=== PATIENT | male | born 2000 | race African-American/Black ===

== ENCOUNTER 2024-04-07 21:20 | Inpatient (IN) | payer SELFPAY ==
--- OUTSIDE RECORDS SUMMARY | 2024-04-07 21:27 | XMS_ITS | Encounter Summary ---
Author Organization [facility] Address [address] [place] [address] Phone Care Team Providers Care Surgical Pathologist Name Role Phone Gilda Shultz MD Primary Care Provi sharon Stanley Simmons Unavailable [phone] Gilda Shultz MD Unavailable [phone] Encounter Details Date Type Department Care Team (Latest Contact Info) Description 07/09/2023 Abstract Cerner Conversion Provider, MD Ronny [address] [place] [id number] Social History Tobacco Use Types Packs/Day Years Used Date Smoking Tobacco: Never Assessed Sex and Gender Information Value Date Recorded Sex Assigned at Male 06/17/2023 3:31 AM EDT Legal Sex Male 3:31 AM EDT Gender Identity Not on file Sexual Orientation Not on file documented as of this encounter Plan of Treatment Not on file documented as of this encounter Visit Diagnoses Not on filedocumented in this encounter Care Teams Surgical Pathologist Relationship Specialty Start Date End Date Gilda Shultz MD [address] [place] [address] PCP - General 07/03/23 Stanley Simmons [address] [place] [address] PCP - Insurance PCP 09/03/20 Gilda Shultz MD [address] [place] [address] PCP - Clinical PCP 10/08/20 documented as of this encounter
--- OUTSIDE RECORDS SUMMARY | 2024-04-07 21:27 | XMS_ITS | Clinical Summary ---
Author Organization [facility] Address [address] [place] [address] Care Team Providers Care Brick Wheeler Name Role Phone Pcp, No Primary Care Provider Unavailabl e Social History Tobacco Use Types Packs/Day Years Used Date Smoking Tobacco: Never Assessed Sex and Gender Information Value Date Recorded Sex Assigned at Not on file Legal Sex Male 10:02 AM EST Gender Identity Not on file Sexual Orientation Not on file Plan of Treatment Health Maintenance Due Date Last Done Comments Annual Physical 2003 Hepatitis B Screening 2018 DTaP,Tdap,and Td Vaccines (1 - Tdap) 2019 COVID-19 Vaccine (2023-2 5 season) 2023 Influenza Vaccine (#1) 2023 4, 12/10/2012 HIB Vaccines Aged Out No longer eligi ble based on patient's age to complete this topic Hepatitis A Vaccine Aged Out No longe r eligible based on patient's age to complete this topic Pneumococcal Vaccines 0-64 yrs (includes High Risk) Aged Out No longer eligi ble based on patient's age to complete this topic Care Teams Brick Wheeler Relationship Specialty Start Date End Date [place] [id number] PCP - General 02/25/19
--- OUTSIDE RECORDS SUMMARY | 2024-04-07 21:27 | XMS_ITS | Clinical Summary ---
[facility] Address [address] [place] [address] Phone Care Team Providers Care Cloth Finishing Range Back Tender Name Role Phone Required, No Pcp/Pcp Not Primary Care Provider U navailable Allergies No known active allergies Medications OLANZapine (ZYPREXA) 5 MG tablet Take 1 tablet (5 mg) by mouth nightly 04/07/2024 Active Active Problems Problem Noted Date Diagnosed Date Schizophrenia 04/06/2024 Brief psychotic disorder 12/30/2019 Encounters Date Type Department Care Team Description 04/06/2024 1:29 PM EST - 04/07/2024 6:50 PM EST Emergency [facility] - Emergency Department [address] [place] [address] Sal Hartley DO Chang, Howard Hong-Juei, MD Corrigan, Daniel, MD Cingari, MD Randy Hogan Mark A., MD Mood disturbance (Primary Dx); Encounter for medical screening examination Discharge Disposition: Psychiatric Facility 04/06/2024 Travel from Last 3 Months Social History Tobacco Use Types Packs/Day Years Used Date Smoking Tobacco: Never Smokeless Tobacco: Never Tobacco Cessation:Counseling Given: Not Answered Sex and Gender Information Value Date Recorded Sex Assigned at Not on file Legal Sex Male 12:00 PM EDT Gender Identity Not on file Sexual Orientation Not on file Last Filed Vital Signs Vital Sign Reading Time Taken Comments Blood Pressure 136/84 04/07/2024 6:41 PM EST Pulse 89 04/07/2024 6:41 PM EST Temperature 36.8 ??C (98.3 ??F) 04/07/2024 6:41 PM ES T Respiratory Rate 16 04/07/2024 6:41 PM EST Oxygen Saturation 96% 04/07/2024 6:41 PM EST Inhaled Oxygen Concentration - - Weight 97.5 kg (215 lb) 04/06/2024 2:01 PM EST Height 180.3 cm (5' 11 ) 04/06/2024 2:01 PM EST Body Mass Index 29.99 04/06/2024 2:01 PM EST Plan of Treatment Health Maintenance Due Date Last Done Comments [facility] Topic HIV Screening 2000 [facility] Topic Hepatitis C Screening 2000 [facility] Topic Depression Screening 2012 [facility] Topic HPV Vaccines (1 - Male 3-dose series) 2015 [facility] Topic Tdap Vaccine (1 - Tdap) 2019 [facility] Topic Lipid Profile 5 years 2022 [facility] Topic Influenza (Flu) Seasonal (#1) 2023 11/24/2019, 11/22/2017, 12/28/2013, Additional history exists [facility] Topic Meningococcal Group B Conjugate Vaccine Aged Out 10/01/2017 No longer elig ible based on patient's age to complete this topic Procedures Procedure Name Priority Date/Time Associated Diagnosis Comments ECG 12-LEAD STAT 04/07/2024 8:53 AM EST URINALYSIS WITH REFLEX STAT 3:39 PM EST URINALYSIS WITH REFLEX STAT 3:39 PM EST URINE DRUGS OF ABUSE SCREEN STAT 04/06/2024 3:39 PM EST EXTRA URINE CULTURE TUBE STAT 04/06/2024 3:39 PM EST ETHANOL STAT 04/06/2024 2:59 PM EST SALICYLATE LEVEL STAT 04/06/2024 2:59 PM EST ACETAMINOPHEN LEVEL STAT 04/06/2024 2 :59 PM EST COMPREHENSIVE METABOLIC PANEL STAT 04/06/2024 2:59 PM EST CBC WITH AUTO DIFFERENTIAL STAT 04/06/2024 2:59 PM EST COVID-19 ([facility]) STAT 04/06/2024 2:59 PM EST from Last 3 Months Results * Urinalysis with reflex (04/06/2024 3:39 PM EST) Color, Urine Yellow Colorless, Yellow 04/06/2024 3:59 PM [facility] Clarity, Urine Clear Clear 04/06/2024 3:59 PM [facility] Specific [place], Urine 1.004 1.002 - 1.030 04/06/2024 3:59 PM [facility] pH, Urine 7.0 5.0 - 8.0 04/06/2024 3:59 PM [facility] Leukocytes, Urine Negative Negative 04/06/2024 3:59 PM [facility] Nitrite, Urine Negative Negative 04/06/2024 3:59 PM [facility] Protein, Urine Negative Negative 04/06/2024 3:59 PM [facility] Glucose, Urine Negative Negative 04/06/2024 3:59 PM [facility] Ketones, Urine Negative Negative 04/06/2024 3:59 PM [facility] Bilirubin, Urine Negative Negative 04/06/2024 3:59 PM [facility] Blood, Urine Negative Negative 04/06/2024 3:59 PM [facility] Urine Urine specimen obtained by clean catch procedure / Unknown Non-blood Collection / Unknown 04/06/2024 3:39 PM EST 04/06/2024 3:50 PM EST [facility] - 04/06/2024 3:59 PM EST Per protocol, no culture performed. For protocol inquiries or add-on testing, please call Infectious Disease at [phone] or [phone]. us Sal Hartley DO LAB URINE ORDERABLES Fi nal Result [facility] [address] [place] [address], * Extra Urine Culture Tube (04/06/2024 3:39 PM EST) Extra Tube 04/06/2024 5:01 PM [facility] Comment:An Extra tube was co llected from this patient. Please follow add on workflow or contact the Laboratory if you wish to place orders on this specimen. Urine Urine specimen obtained by clean catch procedure / Unknown Non-blood Collection / Unknown 04/06/2024 3:39 PM EST 04/06/2024 3:49 PM EST Sal Hartley DO LAB MICROBIOLOGY - GENE RAL ORDERABLES Final Result Performing Organization Address [facility]/ZIP Co de Phone Number [facility] [address] [place] [address], * Urine drugs of abuse screen (04/06/2024 3:39 PM EST) Amphetamines, Urine Screen None Detected None Detected 04/06/2024 4:21 PM [facility] Barbiturates, Urine Screen None Detected None Detected 04/06/2024 4:21 PM [facility] Benzodiazepines, Urine Screen None Detected None Detected 04/06/2024 4:21 PM [facility] Cocaine, Urine Screen None Detected None Detected 04/06/2024 4:21 PM [facility] Opiates, Urine Screen None Detected None Detected 04/06/2024 4:21 PM [facility] Cannabinoids (THC), Urine Screen None Detected None Detected 04/06/2024 4:21 PM [facility] Tricyclic Antidepressants, Urine Screen None Detected None Detected 04/06/2024 4:21 PM [facility] Fentanyl, Urine Screen None Detected None Detected 04/06/2024 4:21 PM [facility] Methadone, Urine Screen None Detected None Detected 04/06/2024 4:21 PM [facility] Oxycodone, Urine Screen None Detected None Detected 04/06/2024 4:21 PM [facility] Buprenorphine, Urine Screen None Detected None Detected 04/06/2024 4:21 PM [facility] Phencyclidine, Urine Screen None Detected None Detected 04/06/2024 4:21 PM [facility] Urine Urine specimen obtained by clean catch procedure / Unknown Non-blood Collection / Unknown 04/06/2024 3:39 PM EST 04/06/2024 3:50 PM [facility] - 04/06/2024 4:21 PM [facility] This is a screening test for urine drugs of ABUSE only, performed using Yann Yrn analyzer. It is not designed or intended to monitor treatment or assess patient compliance. ??Those purposes are best served by a specific assay for the specific drug being administered. ?? Like any screening test, this drug screen has inherent limitations. ?? A result of NONE DETECTED indicates the absence of the major metabolites of the tested drugs or their presence at a level below the cut-off concentration (see below). ??False negative results may be due to the pharmacokinetics of the drug and/or the timing of the sample relative to the use of the drug in question. ?? A POSITIVE result is a presumptive qualitative positive which indicates that the major metabolites of the tested drugs are likely present at or above their cut- off concentration (see below). ??False positive results may be caused by cross- reacting substances. ??Unconfirmed positive results of this screening test must not be used for non-medical purposes. ?? Cutoffs for Drug Classes: Amphetamines ? 1000 ng/mL Barbiturates ? 200 ng/mL Benzodiazepines ??100 ng/mL Cocaine ?300 ng/mL Opiates ?300 ng/mL TCA ?300 ng/mL THC ?50 ng/mL Fentanyl ?5 ng/mL Methadone ?300 ng/ml Oxycodone ?100 ng/ml Buprenorphine ?5 ng/ml Phencyclidine ? 25 ng/ml Sal Hartley DO LAB URINE ORDERABLES Fi nal Result [facility] [address] [place] [address], [place] [phone] * COVID-19 ([facility]) (04/06/2024 2:59 PM EST) Pathologist [facility] COVDC- ([facility]) PCR Negative Negative LTT PANTHER ANALYZER-DP H 04/06/2024 6:11 PM [facility] Swab (Nasopharynx) Non-blood Collection / Unknown 04/06/2024 2:59 PM EST 04/06/2024 3:06 PM EST Sal Hartley DO LAB MICROBIOLOGY - GENE RAL ORDERABLES Final Result [facility] [address] [place] [address], [place] [phone] * (ABNORMAL) CBC with auto differential (04/06/2024 2:59 PM EST) [facility] WBC 5.6 4.5 - 10.8 10*3 ??l 04/06/2024 3:18 PM [facility] RBC 5.37 4.70 - 6.10 10*6 ??l 04/06/2024 3:18 PM [facility] Hemoglobin 17.2 14.0 - 18.0 g/dL 04/06/2024 3:18 PM [facility] Hematocrit 50.5 42.0 - 52.0 % 04/06/2024 3:18 PM [facility] MCV 94 80 - 95 fL 04/06/2024 3:18 PM [facility] MCH 32.0 25.4 - 39.0 pg 04/06/2024 3:18 PM [facility] MCHC 34.1 31.0 - 37.0 g/dL 04/06/2024 3:18 PM [facility] RDW 11.6 11.5 - 14.5 % 04/06/2024 3:18 PM [facility] Platelets 313 150 - 450 10*3 ??l 04/06/2024 3:18 PM [facility] MPV 9.0 7.0 - 11.0 fL 04/06/2024 3:18 PM [facility] Neutrophils % 62.3 40.0 - 80.0 % 04/06/2024 3:18 PM [facility] Lymphocytes % 29.1 20.0 - 40.0 % 04/06/2024 3:18 PM [facility] Monocytes % 6.6 2.0 - 10.0 % 04/06/2024 3:18 PM [facility] Eosinophils % 0.9(L) 1.0 - 6.0 % 04/06/2024 3:18 PM [facility] Basophils % 0.7 0.0 - 1.0 % 04/06/2024 3:18 PM [facility] Immature Granulocyte % 0.4 0.0 - 0.9 % 04/06/2024 3:18 PM [facility] Neutrophils Absolute 3.52 2.00 - 7.00 K/mm3 04/06/2024 3:18 PM [facility] Absolute Immature Granulocyte 0.02 0.00 - 0.09 K/mm3 04/06/2024 3:18 PM [facility] Lymphocytes Absolute 1.64 1.00 - 3.00 K/mm3 04/06/2024 3:18 PM [facility] Monocytes Absolute 0.37 0.20 - 1.00 K/mm3 04/06/2024 3:18 PM [facility] Eosinophils Absolute 0.05 0.00 - 0.50 K/mm3 04/06/2024 3:18 PM [facility] Basophils Absolute 0.04 0.00 - 0.10 K/mm3 04/06/2024 3:18 PM [facility] Blood Venous blood / Unknown Venipuncture / Unknown 04/06/2024 2:59 PM EST 04/06/2024 3:09 PM EST us Sal Hartley DO LAB BLOOD ORDERABLES Fi nal Result [facility] [address] [place] [address], * Ethanol (04/06/2024 2:59 PM EST) Ethanol <=10 0 - 10 mg/dL 04/06/2024 4:01 PM [facility] Comment:NONE DETECTED: Resul t <10 should be interpreted as NONE DETECTED. Blood Venous blood / Unknown Venipuncture / Unknown 04/06/2024 2:59 PM EST 04/06/2024 3:29 PM EST Sal Hartley DO LAB BLOOD ORDERABLES Fi nal Result Performing Organization Address City/[facility]/ZIP Co de Phone Number [facility] [address] [place] [address], * Acetaminophen level (04/06/2024 2:59 PM EST) Acetaminophen Level <5.1 <15.0 ug/mL 04/06/2024 4:01 PM [facility] Blood Venous blood / Unknown Venipuncture / Unknown 04/06/2024 2:59 PM EST 04/06/2024 3:29 PM EST Sal Hartley DO LAB BLOOD ORDERABLES Fi nal Result Performing Organization Address [facility]/ZIP Co de Phone Number [facility] [address] [place] [address], * Salicylate level (04/06/2024 2:59 PM EST) Salicylate Level <=3.0 3.0 - 30.0 mg/dL 04/06/2024 4:01 PM [facility] Blood Venous blood / Unknown Venipuncture / Unknown 04/06/2024 2:59 PM EST 04/06/2024 3:29 PM EST Sal Hartley DO LAB BLOOD ORDERABLES Fi nal Result [facility] [address] [facility] [place] [address], [place] [phone] * (ABNORMAL) Comprehensive metabolic panel (04/06/2024 2:59 PM [facility]) Glucose 97 70 - 100 mg/dL 04/06/2024 3:36 PM [facility] BUN 8 6 - 19 mg/dL 04/06/2024 3:36 PM [facility] Creatinine 1.0 0.4 - 1.2 mg/dL 04/06/2024 3:36 PM [facility] eGFR >60.00 >60.00 mL/min/1.7 3m*2 04/06/2024 3:36 PM [facility] Sodium 139 135 - 145 mmol/L 04/06/2024 3:36 PM [facility] Potassium 4.0 3.4 - 5.1 mmol/L 04/06/2024 3:36 PM [facility] Chloride 99 98 - 109 mmol/L 04/06/2024 3:36 PM [facility] CO2 26 24 - 32 mmol/L 04/06/2024 3:36 PM [facility] Anion Gap 14(H) 6 - 12 mmol/L 04/06/2024 3:36 PM [facility] Calcium 10.0 8.5 - 10.5 mg/dL 04/06/2024 3:36 PM [facility] Total Bilirubin 0.4 0.2 - 1.2 mg/dL 04/06/2024 3:36 PM [facility] Alkaline Phosphatase 84 40 - 129 U/L 04/06/2024 3:36 PM [facility] ALT (SGPT) 46(H) 0 - 40 U/L 04/06/2024 3:36 PM [facility] AST 22 0 - 37 U/L 04/06/2024 3:36 PM [facility] Total Protein 9.0(H) 6.0 - 8.5 g/dL 04/06/2024 3:36 PM [facility] Albumin 4.8 3.3 - 5.2 g/dL 04/06/2024 3:36 PM [facility] Estimated Creatinine Clearance 135.6 mL/min 04/06/2024 3:36 PM EST [facility] Blood Venous blood / Unknown Venipuncture / Unknown 04/06/2024 2:59 PM EST 04/06/2024 3:04 PM EST Sal Hartley DO LAB BLOOD ORDERABLES Fi nal Result [facility] [address] [facility] [place] [address], from Last 3 Months Advance Directives For more information, please contact: [phone] * Full Code (Latest Code Status on File) Date Activated Date Inactivated Comments 04/06/2024 4:08 PM Question Answer Comments Cardiopulmonary Resuscitatio n: for a patient in cardiac or respiratory arrest (Full Code = Attempt Resuscitation, DNR = Do not attempt resuscitation): Full Code Ventilation: for a patient in respiratory distre ss: Intubate and Ventilate Care Teams Cloth Finishing Range Back Tender Relationship Specialty Start Date End Date Required, No Pcp/Pcp Not [address] [place] [address] PCP - General Configuration Release Manager 04/06/24
--- OUTSIDE RECORDS SUMMARY | 2024-04-07 21:27 | XMS_ITS | Clinical Summary ---
Author Organization [facility] Address [address] [place] [address] Phone Care Team Providers Care Renewable Energy Trader Name Role Phone Gilda Shultz MD Primary Care Provi sharon Stanley Simmons Unavailable [phone] Gilda Shultz MD Unavailable [phone] Allergies No known active allergies Medications * This document contains information received from the source organization and may not represent a complete record from that organization. No known medications Active Problems Problem Noted Date Diagnosed Date Psychosis 08/01/2021 Anxiety 10/09/2020 Depression 10/09/2020 Encounters * This document contains information received from the source organization and may not represent a complete record from that organization. Date Type Department Care Team Description 04/06/2024 Telephone [facility] [address] [place] [address] Torrie Soliman ED F/U Notification 02/16/2024 Travel from Last 3 Months Immunizations Name Administration Dates Next Due Hep A, Unspecified 10/12/2007,09/23/2006 Hep B, Unspecified 01/25/2007,09/23/2006, 005 IPV 10/01/2017, 8,03/25/2004,07/10/2001, 2000 Influenza, Unspecified 11/24/2019,11/22/2017,06/2012 MMR 11/12/2006,09/23/2006 Meningococcal ACWY, unspecified 10/01/2017 Pfizer Purple Cap SARS-CoV-2 07/26/2020,07/06/19 21 Td (adult), unspecified 06/19/2011 Varicella 12/25/2006,09/23/2006 Social History Tobacco Use Types Packs/Day Years Used Date Smoking Tobacco: Never Passive Smoke Exposure: Never Smokeless Tobacco: Never Tobacco Cessation:Counseling Given: Not Answered Sex and Gender Information Value Date Recorded Sex Assigned at Male 06/17/2023 3:31 AM EDT Legal Sex Male 3:31 AM EDT Gender Identity Not on file Sexual Orientation Not on file Last Filed Vital Signs Vital Sign Reading Time Taken Comments Blood Pressure 128/88 02/16/2024 4:08 PM EST Pulse 91 02/16/2024 4:08 PM EST Temperature - - Respiratory Rate 18 05/12/2023 2:46 PM EST Oxygen Saturation 98% 02/16/2024 4:08 PM EST Inhaled Oxygen Concentration - - Weight 101 kg (221 lb 12.5 oz) 02/16/2024 4:08 P M EST Height 178.2 cm (5' 10.16 ) 02/16/2024 4:[address] Body Mass Index 31.68 02/16/2024 4:08 PM EST Plan of Treatment Health Maintenance Due Date Last Done Comments DTaP/Tdap/Td Vaccines (2 - Tdap) 07/17/2011 06/19/2011 HPV Vaccines (1 - Male 3-dose series) 2015 Hepatitis C Screening 2018 COVID-19 Vaccine (3 - season) 2023 07/26/2020, 07/05/2020 Influenza Vaccine (#1) 2023 , 11/22/2017, 12/28/2013, Additional history exists MMR Vaccines Completed 11/12/2006, 09/23/2006 Varicella Vaccines Completed 12/25/2006, 09/23/2006 Hepatitis B Vaccines Completed 01/25/2007, 09/23/2006, 03/25/2004 Hepatitis A Vaccines Completed 10/12/2007, 09/24/19 07 IPV Vaccines Completed 10/01/2017, 09/07, 03/25/2004, Additional history exists Meningococcal Vaccine Completed 10/01/2017, 018 HIV Screening Completed 07/10/2023 HIB Vaccines Aged Out No longer eligi ble based on patient's age to complete this topic Pneumococcal Vaccine: Pediatrics (0 to 5 Years) and At-Risk Patients (6 to 64 Years) Aged Out No longer eligible based on patient's age to complete this topic Rotavirus Vaccines Aged Out No longer eligible based on patient's age to complete this topic Procedures Procedure Name Priority Date/Time Associated Diagnosis Comments RAPID HIV 1 AND 2 SCREEN Routine 07/10/2023 3:14 PM EDT from Last 3 Months or Most Recently Relevant to Health Maintenance Results * HIV-1/2 Combo Ag/Ab w/ Reflex Confirmation (07/10/2023 3:14 PM EDT) HIV-1/2 Combo Antigen/Antibo dy Non-Reacti ve [facility] 07/10/2023 3:14 PM EDT 07/10/2023 7:52 PM EDT us Gilda Terry MD LAB BLOOD ORDERABLE S Final Result [facility] [address] [place] [address], from Last 3 Months or Most Recently Relevant to Health Maintenance Care Teams Renewable Energy Trader Relationship Specialty Start Date End Date Gilda Shultz MD [address] [place] [id number] PCP - General 07/03/23 Stanley Simmons [address] [place] [phone] PCP - Insurance PCP 09/03/20 Gilda Shultz MD [address] [place] [id number] PCP - Clinical PCP 10/08/20
--- OUTSIDE RECORDS SUMMARY | 2024-04-07 21:27 | XMS_ITS | Encounter Summary ---
[facility] Address [address] [facility] [place] [address] Phone Care Team Providers Care Cloth Cutter Name Role Phone Required, No Pcp/Pcp Not Primary Care Provider U navailable Encounter Details Date Type Department Care Team (Latest Contact Info) Description 04/06/2024 Travel Social History Tobacco Use Types Packs/Day Years Used Date Smoking Tobacco: Never Smokeless Tobacco: Never Sex and Gender Information Value Date Recorded Sex Assigned at Not on file Legal Sex Male 12:00 PM EDT Gender Identity Not on file Sexual Orientation Not on file documented as of this encounter Plan of Treatment Not on file documented as of this encounter Visit Diagnoses Not on filedocumented in this encounter Additional Health Concerns Infection Onset Date Last Indicated Resolved Time Covid Possible 04/06/2024 04/06/2024 04/06/2024 6: 11 PM EST documented as of this encounter Care Teams Cloth Cutter Relationship Specialty Start Date End Date Required, No Pcp/Pcp Not [address] [place] [address] PCP - General Manager Billing 04/06/24 documented as of this encounter
--- OUTSIDE RECORDS SUMMARY | 2024-04-07 21:27 | XMS_ITS | Encounter Summary ---
Author Organization [facility] Address [address] [place] [address] Phone Care Team Providers Care Food Porter Name Role Phone Gilda Shultz MD Primary Care Provi sharon Troy Stanley Lianne Unavailable [phone] Gilda Shultz MD Unavailable [phone] Reason for Visit * Reason Onset Date Comments ED F/U Notification 04/06/2024 Encounter Details Date Type Department Care Team (Late st Contact Info) Description 04/06/2024 Telephone [facility] [address] [place] [id number] Torrie Soliman ED F/U Notification Social History Tobacco Use Types Packs/Day Years Used Date Smoking Tobacco: Never Passive Smoke Exposure: Never Smokeless Tobacco: Never Sex and Gender Information Value Date Recorded Sex Assigned at Male 06/17/2023 3:31 AM EDT Legal Sex Male 3:31 AM EDT Gender Identity Not on file Sexual Orientation Not on file documented as of this encounter Miscellaneous Notes * Telephone Encounter - Torrie Soliman - 04/06/2024 3:46 PM EST Perez, Please see info below for Ella's ED visit from today. There hasn't been a disposition documented yet. ED Presentation Date: 04/06 ED Discharge Date: TBD- Currently at ED Location: [facility] Reason for Presentation/Dx: Mood disturbance/ delusions Discharge Disposition:TBD Thank you, Torrie Soliman [facility] [phone] documented in this encounter Plan of Treatment Not on file documented as of this encounter Visit Diagnoses Not on filedocumented in this encounter Care Teams Food Porter Relationship Specialty Start Date End Date Gilda Shultz MD [address] [place] [address] PCP - General 07/03/23 Stanley Simmons [address] [place] [id number] PCP - Insurance PCP 09/03/20 Gilda Shultz MD [address] [place] [address] PCP - Clinical PCP 10/08/20 documented as of this encounter
--- OUTSIDE RECORDS SUMMARY | 2024-04-07 21:27 | XMS_ITS | Encounter Summary ---
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 Name Role Phone Required, No Pcp/Pcp Not Primary Care Provider U navailable Reason for Visit * Reason Comments Delusional Mental Health Problem Encounter Details Date Type Department Care Team (Late st Contact Info) Description 04/06/2024 1:29 PM EST - 04/07/2024 6:50 PM EST Emergency [facility] - Emergency Department [address] [place] [id number] Prince López DO [address] [place] [id number] Obey Valadez MD [address] [place] [phone] Alejandro Jordan MD [address] [place] [address] [address] [place] [address] Shay Ferrell MD [address] [place] [id number] Mac Padilla MD [address] [place] [id number] Mood disturbance (Primary Dx); Encounter for medical screening examination Discharge Disposition: Psychiatric Facility Social History Tobacco Use Types Packs/Day Years Used Date Smoking Tobacco: Never Smokeless Tobacco: Never Tobacco Cessation:Counseling Given: Not Answered Sex and Gender Information Value Date Recorded Sex Assigned at Not on file Legal Sex Male 12:00 PM EDT Gender Identity Not on file Sexual Orientation Not on file documented as of this encounter Last Filed Vital Signs Vital Sign Reading [...] Mass Index 29.99 04/06/2024 2:01 PM EST documented in this encounter Discharge Summaries * Rachel Olivas CNP - 04/07/2024 6:50 PM EST Psychiatric Observation Discharge Summary Patient Name: Clive Chow Date of : 2000 Date of Service: 04/07/2024 Length of Service: 04/06/2024 - 04/07/2024 Final Diagnoses: Patient Active Problem List Diagnosis Brief psychotic disorder (CMS/HCC) Schizophrenia (CMS/HCC) CURRENT DIAGNOSIS: Schizophrenia Patient Active Problem List Diagnosis Brief psychotic disorder (CMS/HCC) Schizophrenia (CMS/HCC) REASON FOR ADMISSION TO PO: paranoia HOSPITAL COURSE Admitted to Psychiatric Observation Service for management of paranoia Start Zyprexa nightly and Zyprexa PRN, add clonidine PRN Limited improvement in symptoms psychosis continued throughout hospitalization continue to recommend inpatient psychiatric placement, Ally has found placement at [facility] where patient will be transferred to for ongoing care. DISCHARGE MEDICATIONS Current Facility-Administered Medications: ibuprofen (ADVIL,MOTRIN) tablet 600 mg, 600 mg, Oral, q6h PRN, Eri Alvarez CNP cloNIDine (CATAPRES) tablet 0.1 mg, 0.1 mg, Oral, TID PRN, Eri Alvarez CNP OLANZapine (ZYPREXA) tablet 5 mg, 5 mg, Oral, TID PRN, Eri Alvarez CNP, 5 mg at 04/06/242057 OLANZapine (ZYPREXA) tablet 5 mg, 5 mg, Oral, Nightly, Eri Alvarez CNP No current outpatient medications on file. MENTAL STATUS UPON DISCHARGE Physical Exam: Musculoskeletal: moves all extremities; no abnormal movements Gait: gait not assessed EPS: none MSE: Appearance: appropriately dressed and malodorous Behavior: cooperative, eye contact limited, and guarded Psychomotor Activity: normal Speech: regular rate, regular rhythm, and regular volume Mood: neutral Affect: blunted Thought Process: linear Thought Content: paranoia Suicidal Ideation: no suicidal ideation Homicidal Ideation: no homicidal ideation Perceptions/Experiences: no hallucinations Insight: poor Judgement: poor Cognitive Exam: Orientation: oriented X3 and alert Memory: intact Attention/Concentration: poor Fund of Knowledge: average Language: fluent Capacity: Cannot leave AMA Health Care Proxy: not invoked ROS Constitutional: No fever, no weight loss Musculoskeletal: NO EPS Positive: paranoia Negative for: headache, sore throat, chest pain, dizziness, blurred vision, fatigue, joint pain, constipation, skin itchiness, dysuria, cough, SOB, vomiting, diarrhea, nausea, abdominal pain. CONDITION AT DISCHARGE Continues with paranoia impaired insight/judgement at risk of harming self or others DISPOSITION Requires Psychiatric Inpatient level of Care POST-DISCHARGE PLAN: Admit to [facility] Accepting Physician - Dr. Mary Jo Olivas CNP documented in this encounter Medications at Time of Discharge OLANZapine (ZYPREXA) 5 MG tablet Take 1 tablet (5 mg) by mouth nightly 04/07/2024 documented as of this encounter Progress Notes * Eri Alvarez CNP - 04/07/2024 7:22 AM EST PSYCH OBSERVATION PROGRESS NOTE Patient Name: Clive Chow Date of : 2000 Date of Service: 04/07/2024 Time of Service: 7:22 AM Time spent: 35 minutes CURRENT DIAGNOSIS Schizophrenia CC: You can talk to [employer] police about the finances. They said they'll cover everything. Brief history: The patient is a 24 y.o. male with a psychiatric history of anxiety, psychosis who presented on 04/06/2024 to the Emergency Department with symptoms of paranoia. Per report, patient was brought to ER on a Section 12 by [employer] for delusions of reference andpersecutory delusions related to being 'gang-stalked' stating that ' my life is at risk'. Patient presents with loose associations, delusions of reference, capgras delusions about seeing imposters offamily members and friends. Patient was reportedly approaching strangers on the street accusing them of stalking/causing harm to him. Upon assessment this afternoon with [facility] clinician, patient is seen sitting on stretcher. He is calm upon approach and cooperative for assessment. He asks us if we spoke with the lieutenant at the police station stating he went there to file a report. Patient reports that there is possible cyberstalking or identity theft going on. Eri is filing a report. I was also involved in a hit and runin [place] that I was going to file report for after that. Patient appears somewhat guarded andparanoid while speaking with myself and ally clinician. He denies presence of suicidal or homicidal ideation. When asked about hallucinations, he reports you do not live with me. He then laughs and states that he does not experience hallucinations. He reports that he does have issues with sleepand experiences vivid dreams. Patient reports having current psychiatric providers through [facility] although denies taking medications at this time. Per collateral information obtained by Ally from responding clinician, patient was adamant thathis report be taken regarding cyber and gang stalking. He reported feeling that his life was being threatened and even went up to a stranger recently accusing them of pretending to be a family member. After extensive chart review, it appears patient was last seen by [facility] psychiatry in 2023's psychosis and concerns for catatonia. At that time, patient reported that he was using mushrooms and experiencing increased paranoia and delusional thinking. It appeared patient was experiencing first break psychosis at that time. 04/07/2024 The patient is seen laying in bed this morning. He reports feeling fine and asks about the plan. Reinforced plan for inpatient psychiatric treatment and re- educated on boarding in ER while awaiting placement. We briefly spoke about insurance barrier, although patient states he does have [facility] then tells me to contact [employer] because they told him they would cover everything. He denies presence of SI, HI, or hallucinations. The patient refused scheduled Zyprexa although appears to have taken PRN Zyprexa last night. Plan to continue to monitor patient psychiatric treatment needs while pending placement. CURRENT MEDICATIONS: Current Facility-Administered Medications: ibuprofen (ADVIL,MOTRIN) tablet 600 mg, 600 mg, Oral, q6h PRN, Eri Alvarez, REYES cloNIDine (CATAPRES) tablet 0.1 mg, 0.1 mg, Oral, TID PRN, Eri Alvarez, ASSOCIATE PROFESSOR OF BIBLICAL STUDIES OLANZapine (ZYPREXA) tablet 5 mg, 5 mg, Oral, TID PRN, Eri Alvarez, REYES, 5 mg at 04/06/242057 OLANZapine (ZYPREXA) tablet 5 mg, 5 mg, Oral, Nightly, Eri Alvarez, ASSOCIATE PROFESSOR [employer] STUDIES No current outpatient medications on file. CURRENT LABS: Recent Results (from the past 24 hours) CBC with auto differential Collection Time: 04/06/24 2:59 PM Result Value Ref Range WBC 5.6 4.5 - 10.8 10*3 ??l RBC 5.37 4.70 - 6.10 10*6 ??l Hemoglobin 17.2 14.0 - 18.0 g/dL Hematocrit 50.5 42.0 - 52.0 % MCV 94 80 - 95 fL MCH 32.0 25.4 - 39.0 pg MCHC 34.1 31.0 - 37.0 g/dL RDW 11.6 11.5 - 14.5 % Platelets 313 150 - 450 10*3 ??l MPV 9.0 7.0 - 11.0 fL Neutrophils % 62.3 40.0 - 80.0 % Lymphocytes % 29.1 20.0 - 40.0 % Monocytes % 6.6 2.0 - 10.0 % Eosinophils % 0.9 (L) 1.0 - 6.0 % Basophils % 0.7 0.0 - 1.0 % Immature Granulocyte % 0.4 0.0 - 0.9 % Neutrophils Absolute 3.52 2.00 - 7.00 K/mm3 Absolute Immature Granulocyte 0.02 0.00 - 0.09 K/mm3 Lymphocytes Absolute 1.64 1.00 - 3.00 K/mm3 Monocytes Absolute 0.37 0.20 - 1.00 K/mm3 Eosinophils Absolute 0.05 0.00 - 0.50 K/mm3 Basophils Absolute 0.04 0.00 - 0.10 K/mm3 Comprehensive metabolic panel Collection Time: 04/06/24 2:59 PM Result Value Ref Range Glucose 97 70 - 100 mg/dL BUN 8 6 - 19 mg/dL Creatinine 1.0 0.4 - 1.2 mg/dL eGFR >60.00 >60.00 mL/min/1.73m*2 Sodium 139 135 - 145 mmol/L Potassium 4.0 3.4 - 5.1 mmol/L Chloride 99 98 - 109 mmol/L CO2 26 24 - 32 mmol/L Anion Gap 14 (H) 6 - 12 mmol/L Calcium 10.0 8.5 - 10.5 mg/dL Total Bilirubin 0.4 0.2 - 1.2 mg/dL Alkaline Phosphatase 84 40 - 129 U/L ALT (SGPT) 46 (H) 0 - 40 U/L AST 22 0 - 37 U/L Total Protein 9.0 (H) 6.0 - 8.5 g/dL Albumin 4.8 3.3 - 5.2 g/dL Estimated Creatinine Clearance 135.6 mL/min Acetaminophen level Collection Time: 04/06/24 2:59 PM Result Value Ref Range Acetaminophen Level <5.1 <15.0 ug/mL Salicylate level Collection Time: 04/06/24 2:59 PM Result Value Ref Range Salicylate Level <=3.0 3.0 - 30.0 mg/dL Ethanol Collection Time: 04/06/24 2:59 PM Result Value Ref Range Ethanol <=10 0 - 10 mg/dL COVID-19 ([facility]) Collection Time: 04/06/24 2:59 PM Specimen: Nasopharynx; Swab Result Value Ref Range COVID-19 ([facility]) Negative Negative Urine drugs of abuse screen Collection Time: 04/06/24 3:39 PM Result Value Ref Range Amphetamines, Urine Screen None Detected None Detected Barbiturates, Urine Screen None Detected None Detected Benzodiazepines, Urine Screen None Detected None Detected Cocaine, Urine Screen None Detected None Detected Opiates, Urine Screen None Detected None Detected Cannabinoids (THC), Urine Screen None Detected None Detected Tricyclic Antidepressants, Urine Screen None Detected None Detected Fentanyl, Urine Screen None Detected None Detected Methadone, Urine Screen None Detected None Detected Oxycodone, Urine Screen None Detected None Detected Buprenorphine, Urine Screen None Detected None Detected Phencyclidine, Urine Screen None Detected None Detected Extra Urine Culture Tube Collection Time: 04/06/24 3:39 PM Specimen: Urine, Clean Catch Result Value Ref Range Extra Tube Urinalysis with reflex Collection Time: 04/06/24 3:39 PM Result Value Ref Range Color, Urine Yellow Colorless, Yellow Clarity, Urine Clear Clear Specific [place], Urine 1.004 1.002 - 1.030 pH, Urine 7.0 5.0 - 8.0 Leukocytes, Urine Negative Negative Nitrite, Urine Negative Negative Protein, Urine Negative Negative Glucose, Urine Negative Negative Ketones, Urine Negative Negative Bilirubin, Urine Negative Negative Blood, Urine Negative Negative CURRENT MENTAL STATUS Physical Exam: Musculoskeletal: moves all extremities; no abnormal movements Gait: gait not assessed EPS: none MSE: Appearance: appropriately dressed and malodorous Behavior: cooperative, eye contact limited, and guarded Psychomotor Activity: normal Speech: regular rate, regular rhythm, and regular volume Mood: neutral Affect: blunted Thought Process: linear Thought Content: paranoia Suicidal Ideation: no suicidal ideation Homicidal Ideation: no homicidal ideation Perceptions/Experiences: no hallucinations Insight: poor Judgement: poor Cognitive Exam: Orientation: oriented X3 and alert Memory: intact Attention/Concentration: poor Fund of Knowledge: average Language: fluent Capacity: Cannot leave AMA Health Care Proxy: not invoked ROS Constitutional: No fever, no weight loss Musculoskeletal: NO EPS Positive: paranoia, delusions, impaired insight Negative for: headache, sore throat, chest pain, dizziness, blurred vision, fatigue, joint pain, constipation, skin itchiness, dysuria, cough, SOB, vomiting, diarrhea, nausea, abdominal pain. TREATMENT RE-ASSESSMENT Reassessment demonstrates ongoing concerns for psychosis. Patient has tolerated medications withoutEPS or oversedation.PRN medications used with positive response. Will continue to monitor ongoing patient treatment needs. PLAN Continue with Psychiatric Observation admission Continue current medications Zyprexa 5 mg QHS PRN's: Zyprexa 5 mg TID PRN for restlessness, irritability, psychosis Clonidine 0.1 mg TID PRN for anxiety Contact family and outpatient providers as needed for treatment and disposition planning Eri Alvarez CNP 04/07/2024 7:22 AM documented in this encounter H&P Notes * Eri Alvarez CNP - 04/06/2024 4:09 PM EST PSYCHIATRIC OBSERVATION ADMISSION H&P REASON FOR CONSULT A psychiatric consult was placed by Dr. López for evaluation of a patient with paranoia. The patient's record was reviewed, patient was interviewed, and clinical staff were consulted to complete this comprehensive psychiatric consultation. Patient Name: Clive Chow Date of : 2000 Date of Service: 04/06/2024 Time of Service: 4:09 PM Length of Service: 70 minutes Source of information: Patient, Staff collateral CHIEF COMPLAINT: Did you talk to the daishautedelontet? I went to file a report. HISTORY OF PRESENT ILLNESS The patient is a 24 y.o. male with a psychiatric history of anxiety, psychosis who presented on 04/06/2024 to the Emergency Department with symptoms of paranoia. Per report, patient was brought to ER on a Section 12 by [employer] for delusions of reference andpersecutory delusions related to being 'gang-stalked' stating that ' my life is at risk'. Patient presents with loose associations, delusions of reference, capgras delusions about seeing imposters offamily members and friends. Patient was reportedly approaching strangers on the street accusing them of stalking/causing harm to him. Upon assessment this afternoon with [facility] clinician, patient is seen sitting on stretcher. He is calm upon approach and cooperative for assessment. He asks us if we spoke with the lieutedelontet at the police station stating he went there to file a report. Patient reports that there is possible cyberstalking or identity theft going on. Eri is filing a report. I was also involved in a hit and runin [place] that I was going to file report for after that. Patient appears somewhat guarded andparanoid while speaking with myself and [facility] clinician. He denies presence of suicidal or homicidal ideation. When asked about hallucinations, he reports you do not live with me. He then laughs and states that he does not experience hallucinations. He reports that he does have issues with sleepand experiences vivid dreams. Patient reports having current psychiatric providers through [facility] although denies taking medications at this time. [facility], patient was adamant thathis report be taken regarding cyber and gang stalking. He reported feeling that his life was being threatened and even went up to a stranger recently accusing them of pretending to be a family member. After extensive chart review, it appears patient was last seen by [facility] psychiatry in 2023's psychosis and concerns for catatonia. At that time, patient reported that he was using mushrooms and experiencing increased paranoia and delusional thinking. It appeared patient was experiencing first break psychosis at that time. Presenting Problem: Psychosis Frequency: Worsening over the last few weeks Modifiable factors: Medication management, utilizing outpatient supports Severity: Severe PAST PSYCHIATRIC HISTORY Outpatient psychiatric providers: Provider: [facility], no meds for over a year Therapist: Dunia Jade at [facility], although hasn't seen her since December Past medication trials: risperdal History of inpatient psychiatric hospitalization: yes History of suicide attempts: denies History of Self-Injurious behavior: denies History of violence towards others: denies, reports only in self defense History of eating disorder: denies History of Trauma: denies FAMILY PSYCHIATRIC HISTORY Family history of psychiatric illness: denies SUBSTANCE HISTORY: Only listing what is appropriate History of: Alcohol use: Denies, reports social use Tobacco/Nicotine use: Denies Marijuana use: Denies Opioid use: Denies Cocaine use: Denies Other: mushrooms in past, last use was in November History of detox/treatment admissions for substance use: denies History of substance related legal issues: denies MEDICAL/SURGICAL HISTORY: Name of outpatient PCP: Required, No Pcp/Pcp Not History of: Head injury: Denies Seizures: Denies LABORATORY SAMPLER infection: Denies Chronic pain: Denies Obstructive Sleep Apnea (BENJA):Denies SOCIAL HISTORY: Living situation: lives with his parents in [place], [place] Social History Socioeconomic History Marital status: Single Spouse name: Not on file Number of children: Not on file Years of education: Not on file Highest education level: Not on file Occupational History Not on file Tobacco Use Smoking status: Never Smokeless tobacco: Never Substance and Sexual Activity Alcohol use: Not on file Drug use: Not on file Sexual activity: Not on file Other Topics Concern Not on file Social History Narrative Lives with family. Here with father. Social Drivers of Health Financial Resource Strain: Not on File (10/25/2018) Received from [facility] Financial Resource Strain Financial Resource Strain: 0 Food Insecurity: Not on File (10/25/2018) Received from [facility] Food Insecurity Food: 0 Transportation Needs: Not on File (10/25/2018) Received from [facility] Transportation Needs Transportation: 0 Physical Activity: Not on File (10/25/2018) Received from [facility] Physical Activity Physical Activity: 0 Stress: Not on File (10/25/2018) Received from [facility] Stress Stress: 0 Social Connections: Not on File (10/25/2018) Received from [facility] Social Connections Social Connections and Isolation: 0 Intimate Partner Violence: Not on file Housing Stability: Not on File (10/25/2018) Received from [facility] Housing Stability Housin ALLERGIES: No Known Allergies RELEVANT LABS: Recent Results (from the past week) CBC with auto differential Collection Time: 04/06/24 2:59 PM Result Value Ref Range WBC 5.6 4.5 - 10.8 10*3 ??l RBC 5.37 4.70 - 6.10 10*6 ??l Hemoglobin 17.2 14.0 - 18.0 g/dL Hematocrit 50.5 42.0 - 52.0 % MCV 94 80 - 95 fL MCH 32.0 25.4 - 39.0 pg MCHC 34.1 31.0 - 37.0 g/dL RDW 11.6 11.5 - 14.5 % Platelets 313 150 - 450 10*3 ??l MPV 9.0 7.0 - 11.0 fL Neutrophils % 62.3 40.0 - 80.0 % Lymphocytes % 29.1 20.0 - 40.0 % Monocytes % 6.6 2.0 - 10.0 % Eosinophils % 0.9 (L) 1.0 - 6.0 % Basophils % 0.7 0.0 - 1.0 % Immature Granulocyte % 0.4 0.0 - 0.9 % Neutrophils Absolute 3.52 2.00 - 7.00 K/mm3 Absolute Immature Granulocyte 0.02 0.00 - 0.09 K/mm3 Lymphocytes Absolute 1.64 1.00 - 3.00 K/mm3 Monocytes Absolute 0.37 0.20 - 1.00 K/mm3 Eosinophils Absolute 0.05 0.00 - 0.50 K/mm3 Basophils Absolute 0.04 0.00 - 0.10 K/mm3 Comprehensive metabolic panel Collection Time: 04/06/24 2:59 PM Result Value Ref Range Glucose 97 70 - 100 mg/dL BUN 8 6 - 19 mg/dL Creatinine 1.0 0.4 - 1.2 mg/dL eGFR >60.00 >60.00 mL/min/1.73m*2 Sodium 139 135 - 145 mmol/L Potassium 4.0 3.4 - 5.1 mmol/L Chloride 99 98 - 109 mmol/L CO2 26 24 - 32 mmol/L Anion Gap 14 (H) 6 - 12 mmol/L Calcium 10.0 8.5 - 10.5 mg/dL Total Bilirubin 0.4 0.2 - 1.2 mg/dL Alkaline Phosphatase 84 40 - 129 U/L ALT (SGPT) 46 (H) 0 - 40 U/L AST 22 0 - 37 U/L Total Protein 9.0 (H) 6.0 - 8.5 g/dL Albumin 4.8 3.3 - 5.2 g/dL Estimated Creatinine Clearance 135.6 mL/min Acetaminophen level Collection Time: 04/06/24 2:59 PM Result Value Ref Range Acetaminophen Level <5.1 <15.0 ug/mL Salicylate level Collection Time: 04/06/24 2:59 PM Result Value Ref Range Salicylate Level <=3.0 3.0 - 30.0 mg/dL Ethanol Collection Time: 04/06/24 2:59 PM Result Value Ref Range Ethanol <=10 0 - 10 mg/dL Urinalysis with reflex Collection Time: 04/06/24 3:39 PM Result Value Ref Range Color, Urine Yellow Colorless, Yellow Clarity, Urine Clear Clear Specific [place], Urine 1.004 1.002 - 1.030 pH, Urine 7.0 5.0 - 8.0 Leukocytes, Urine Negative Negative Nitrite, Urine Negative Negative Protein, Urine Negative Negative Glucose, Urine Negative Negative Ketones, Urine Negative Negative Bilirubin, Urine Negative Negative Blood, Urine Negative Negative MOST RECENT VITAL SIGNS: Vitals: 04/06/24 1607 BP: (!) 152/117 Pulse: (!) 98 Resp: 20 Temp: SpO2: 100% MENTAL STATUS EXAM: Physical Exam: Musculoskeletal: moves all extremities; no abnormal movements Gait: normal EPS: none MSE: Appearance: malodorous Behavior: cooperative and guarded Psychomotor Activity: normal Speech: regular rate, regular rhythm, and regular volume Mood: anxious Affect: labile Thought Process: disorganized and perseverative Thought Content: paranoia and persecutory delusions Suicidal Ideation: no suicidal ideation Homicidal Ideation: no homicidal ideation Perceptions/Experiences: no hallucinations Insight: poor Judgement: poor Cognitive Exam: Orientation: oriented X3 and alert Memory: intact Attention/Concentration: fair Fund of Knowledge: average Language: fluent Capacity: Cannot leave AMA Health Care Proxy: not invoked 1:1 SI Precautions assessment Suicidal thoughts: No -Plan:No -Intent: No Suicidal or Self-harm behaviors: No Risk factors: impaired insight/judgment, psychosis Protective factors: Patient in good behavioral controls and is able to plan for safety, agreeable to reach out to staff if feeling unsafe. For additional documentation please refer to nursing psychosocial documentation for standardized C-SSRS re-assessment. REVIEW OF SYSTEMS Constitutional: No fever, no weight loss Musculoskeletal: NO EPS Positive: paranoia, delusions, impaired insight/judgement Negative for: headache, sore throat, chest pain, dizziness, blurred vision, fatigue, joint pain, constipation, skin itchiness, dysuria, cough, SOB, vomiting, diarrhea, nausea, abdominal pain. CURRENT MEDICATIONS OUTPATIENT: No current outpatient medications ASSESSMENT: The patient presented to the Emergency Department with increased symptoms of paranoia and delusionsin the context of underlying decompensated schizophrenia and medication noncompliance. The patient reportedly presented to the police department stating he wanted to file a report about cyber and gang stalking.he has reportedly been approaching people stating they are stalking him or hurting him. Patient appears quite paranoid and delusional, has little insight into his mental health and minimizing events that occurred prior to coming to ER. Due to concerns for decompensated schizoaffective disorder, ongoing psychosis, and impaired insight and judgment, recommend inpatient psychiatric treatment for stabilization. Patient was informed of plan, although disagrees with disposition. The patient reported not being on medications currently and seemed uninterested in having a discussion about medications. Due to ongoing psychosis, we will start Zyprexa nightly and add Zyprexa as needed for restlessness, irritability, psychosis and clonidine as needed for anxiety. Discussed risks and benefits of these medications with the patient. Continue to evaluate patient's mental status and monitor sleep and appetite closely, observe any potential side effects from psychiatric medications. Will continue to provide counseling to help patient deal with stressors, and provide education and support, while continuing to work with medicine tohelp facilitate patient's clinical progress. HPI and nursing notes were reviewed. Ally are involved in the ongoing treatment planning for this patient. At this time the patient may not leave AMA. Plan to continue to monitor the patient while the patient remains in the hospital. Recommend at this time admission to psychiatric observation for medication adjustment and monitoring, at this time patient presents as at risk of harming others due to psychosis and impaired insight/judgement. Medical review of the labs: UDS needs to be collected, Ethanol - DIAGNOSTIC IMPRESSION: Schizophrenia 20.9 Principal Problem: Schizophrenia (CMS/[facility]) (POA: Yes) PLAN: Admit to Psychiatric Observation Medication plan: Start Zyprexa 5 mg QHS PRN's: Add Zyprexa 5 mg TID PRN for restlessness, irritability, psychosis Add Clonidine 0.1 mg TID PRN for anxiety Monitor: Continue video monitoring to mitigate elopement risk and monitor ongoing patient safety while boarding in the ED. Patient may not leave AMA Discussed risks and benefits of medication plan with patient who was agreeable to aforementioned treatment plan. Update Dr. López to inform team of disposition. Ally involved with treatment planning--inpatient bed search Eri Alvarez CNP 04/06/2024 4:09 PM documented in this encounter Consult Notes * Raquel Vaughn MSW - 04/06/2024 3:12 PM ESTAssociated Order(s): CONSULT TO ASPIRSaida/ LAURA LAURA Adult PIF/Assessment Human Resources Officer (R): ARNALDO Murphy Date of Service (R): 04/06/2024 PERSONAL INFORMATION/DEMOGRAPHICS Patient Demographics Patient Name Clive Chow Legal Sex Male [facility] [id number] Address [place] [facility] [id number] (Home) *Preferred* Extended Emergency Contact Information Primary Emergency Contact: LEONA CHOW Address: [address] [place] [address] [place] [address] [facility] Relation: Mother Preferred language: Qatari Currently Active Insurance Patient has no currently active insurance coverage. ED Arrival Date/Time (R): 04/06/2024 1:29 PM Consult Order Date/Time (R): 04/06/2024 1:44 PM Ready Date (R): 04/06/24 Ready Time (R): 1344 Has this person received services here before? Yes Living Situation: Homeless? (R): No Collateral Contact: [place] TOLBERT and Dunia (therapist) Does the patient have a guardian? [facility] LAURA GUARDIAN: No Guardianship Contact: N/A Email Address: No e-mail address on record Ok to send a message? No Ask the person: Are you in a Dangerous Situation? No If Yes, please explain: (Follow and document per your emergency protocols) N/A Patient Preferred Languages Director Video Needed No Spoken Language Qatari Written Language Qatari Assessment Location of Service (R): ED Who directed client to ED? (R) Police and Section 12 Was the patient sent with a Section 12 (R) Yes Who signed Section 12? (R) Police Presenting Concerns: What has caused this person to seek Services at this time? Pt was BIBA on a S12 with concerns of paranoid delusions. Precipitating Factors: Per report, patient was brought to ER on a Section 12 by [facility] TOLBERT for delusions of reference and persecutory delusions related to being 'gang-stalked' stating that ' my lifeis at risk'. Patient presents with loose associations, delusions of reference, capgras delusions about seeing imposters of family members and friends. Patient was reportedly approaching strangers onthe street accusing them of stalking/causing harm to him. Medical/Physical Past Medical History: Diagnosis Date Anxiety Allergies Reported No Known Allergies Medications Prior to Admission medications Not on File Relevant History No family history on file. Social History Tobacco Use Smoking status: Never Smokeless tobacco: Never Addiction Is there a history of, or current substance use or other addictive behavior? No Was a toxicology screen performed? Yes Results: Negative Was Narcan administered during the last 30 days? No Explain (Please include date and time): N/a Addiction/ Substance Use History Substance Type First Use/Age of Onset Last Use Duration/Frequency Quantities Comments Alcohol Cannabis Cocaine/Crack Heroin Opiates/Narcotics Benzodiazepines Stimulants Hallucinogens Prescription Other: Click or tap here to enter text. Most Recent Acute Admission(s) and Treatment History Has there been a recent acute admission or treatment history? Yes Please include dates of admission, service type, name of agency/provider, goal/outcome: Per chart review and conversation with therapist, pt's last IP admission was in 2020 for similar presentation. Mental Status Exam/Risk Assessment Mental Status Exam/Risk Assessment (within normal limits unless checked, items checked are addressed in clinical formulation/narrative: Affect, Appearance, Impulsivity, Insight, Judgement, Mood, Perception: Delusions, Hallucinations, Sleep, Speech, and Thought Content *Harm to Self and Others include: Means, accessibility (included access to firearms), lethality of means, suicidal/assault history, lethality or attempts/assaults, family history, self- injurious behavior Risk and Protective Factors: RISK - paranoid delusions, impaired insight and judgement, psychosis PROTECTIVE - good behavioral control Clinical Formulation/Narrative/Medical Necessity: Clive Chow is a 24 year-old male who was BIBA on a S12 with concerns of paranoid delusion. Pt is known to LAURA. Pt carries a diagnosis of schizophrenia. Pt has OP providers through [facility], but has not met with them within the last few months. Pt has hx of IP admissions, no hxof suicide attempts. Pt is medically cleared. Pt reported I was trying to file a report for possible cyber stalking and identify theft . Pt reports he was also involved in a hit and run in [place] and was planning on heading there after filing the report in [place]. Pt reports he drove from [place], [place] here today to take care of this. Ptdenies SI/HI/SIB. When asked about hallucinations, pt states you do not live with me , then deniestheir presence. Pt reports adequate sleep and appetite. Pt reports he is currently not taking any medications. Pt observed to be sitting up, in hospital gown, appears stated age. Pt was alert and oriented x4. Pt was engaged and cooperative, however, guarded when answering questions. Pt mood appears to be anxious with congruent affect. Pt speech WNL, eye contact appropriate. Pt thought content contained paranoid delusions. Pt did not appear to be responding to internal stimuli. Impulsivity high, insight and judgement poor. [place], [facility], was contacted for collateral ([phone]). Cory reports pt came into the lobby twice today and was adament that an officer take his report, where he described being cyber and gang stalked for the last four years. Cory reports pt described how this happens when he drives to work, sees license plates starting with EN, who he thinks is a group that is after him, possible just a mass prank. He feels as though these people are threatening his life and needs to defend himself. Cory reports pt has gone up to two strangers accusing them of being after him. Dunia Bassett [facility], pt's therapist, was contacted for collateral. She reports they have been worriedabout pt as he has been symptomatic for quite sometime and stopped going to them after a laps in his insurance. She reports that he has not taken medications for 1+ years and will soon be aging out of their services. She reports that his symptoms can present as hallucinations, paranoia, and respondi ng to internal stimuli. She reports that pt called her one or two weeks ago asking to view his medical records and come in to take pictures of her written notes during session. Leona Chow, pt's mother, was contacted for collateral ([phone]). Voicemail unable to be left, phone continued to ring. At this time, pt presents as a risk to himself and others as evidenced by ongoing psychosis and impaired insight and judgement. Pt is recommended for IPLOC. Latrice Sheppard [facility] and Dr. López were consulted and in agreement with plan. Pt informed of plan. Strengths and Services Preferences: Person's strengths and service preferences: Pt advocated for discharge Is there a Safety Plan? (R): No If yes, please explain: N/A Was a Safety Plan completed or updated during the course of this intervention? (R) No If no, please explain: IPLOC Diagnosis Type Mental Health Only (R): Yes Substance Use Disorder Only (R): No Dual Diagnosis (R): No Comments: N/A Is this person diagnosed with Autism Spectrum Disorder? (R): No Was a Doc to Doc performed? (R): No Was this an Opiod overdose? (R): No Is this a SUDE (Substance Use Disorder Evaluation)? No Was there an LAURA Peer or FP participating in the intervention? (R): No Who initiated FP intervention? (R): N/A Identified Needs and Goals for Treatment Safety and stabilization 2. Connection to OP providers 3. Medication evaluation Additional Recommendations Additional Recommendations: Partial Hospitalization, Self-Help/Peer/Family Support Services, UrgentOutpatient, and Psychopharmacology If other, please explain: Disposition Details Information gathered from:Person Served, Hospital Staff, Reports, Therapist, and Other If other, please explain: [place] [employer] Medical Clearance Requested (R): Yes Medical Clearance Requested by (R): LAURA/CBL If other, please explain: Medical Clearance Provided (R): Yes Medical Clearance Provided Where? (R): ED If other, please explain: Clinical Consult done with: ALFREDA Szymanski Current Safety Assessment: Able to plan for safety in a supportive environment only If other, please explain: Inital Disposition: Inpatient Psychiatric General For Acute Care Time (R): Psychiatric Consult Began Date (R): Time (R): Psychiatric Intervention Began Date (R): Time (R): Intervention Began Time (R) Telehealth: NA Diagnosis: F20.9 Schizophrenia Consult Note documented in this encounter ED Notes * Prince López DO - 04/06/2024 1:40 PM EST EMERGENCY DEPARTMENT ENCOUNTER CHIEF COMPLAINT Mental health disturbance HPI Clive Chow is a 24 y.o. male who presents on 04/06/2024 1:29 PM for evaluation of mental health disturbance. HPI provided by patient and EMS. 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 Patient reportedly lives in [place] but used to live in [place], self presented to the [place] [employer] after their interaction with the patient they are concerned about a loose associations delusions of reference, persecute [place] delusions related to being being stalked reporting that his life was at risk and approaching random people in an accusatory manner. Not reporting any intent to harm self or others. Patient himself reports he thinks that someone might be stalking him, possibly from high school, cannot give any specific names, states that he came up to [place] to notify the proper authorities to see if they could assist to getting to the bottom of this. PAST MEDICAL HISTORY Past Medical History: Diagnosis Date Anxiety SURGICAL HISTORY No past surgical history on file. CURRENT MEDICATIONS No current facility-administered medications on file prior to encounter. No current outpatient medications on file prior to encounter. ALLERGIES No Known Allergies FAMILY HISTORY No family history on file. SOCIAL HISTORY Social History Socioeconomic History Marital status: Single Social History Narrative Lives with family. Here with father. Social Drivers of Health Financial Resource Strain: Not on File (10/25/2018) Received from [facility] Financial Resource Strain Financial Resource Strain: 0 Food Insecurity: Not on File (10/25/2018) Received from [facility] Food Insecurity Food: 0 Transportation Needs: Not on File (10/25/2018) Received from [facility] Transportation Needs Transportation: 0 Physical Activity: Not on File (10/25/2018) Received from [facility] Physical Activity Physical Activity: 0 Stress: Not on File (10/25/2018) Received from [facility] Stress Stress: 0 Social Connections: Not on File (10/25/2018) Received from [facility] Social Connections Social Connections and Isolation: 0 Housing Stability: Not on File (10/25/2018) Received from [facility] Housing Stability [place] REVIEW OF SYSTEMS Comprehensive review of systems unobtainable secondary to patient's current mood and thought alteration PHYSICAL EXAM Vital Signs: Reviewed Constitutional: no painful distress HENT: Normocephalic, Atraumatic, Bilateral external ears normal, Oropharynx moist. Neck: No tenderness, No JVD. Eyes: PERRL, EOMI, Conjunctiva normal Respiratory: No respiratory distress, LCTAB Cardiovascular: Normal heart rate, regular rhythm Abdominal: Soft,no tenderness Musculoskeletal: No edema, No deformities noted. Distal pulses 2+ Skin: Warm, Dry, No rash. Lymphatic: No lymphadenopathy noted. Neurological: Alert & awake, No focal deficits noted, Gait: Steady Psychiatric: Appropriate for situation, age and time, cooperative, does not appear to be respondingto internal stimuli LABS: Recent Results (from the past 24 hours) CBC with auto differential Collection Time: 04/06/24 2:59 PM Result Value Ref Range WBC 5.6 4.5 - 10.8 10*3 ??l RBC 5.37 4.70 - 6.10 10*6 ??l Hemoglobin 17.2 14.0 - 18.0 g/dL Hematocrit 50.5 42.0 - 52.0 % MCV 94 80 - 95 fL MCH 32.0 25.4 - 39.0 pg MCHC 34.1 31.0 - 37.0 g/dL RDW 11.6 11.5 - 14.5 % Platelets 313 150 - 450 10*3 ??l MPV 9.0 7.0 - 11.0 fL Neutrophils % 62.3 40.0 - 80.0 % Lymphocytes % 29.1 20.0 - 40.0 % Monocytes % 6.6 2.0 - 10.0 % Eosinophils % 0.9 (L) 1.0 - 6.0 % Basophils % 0.7 0.0 - 1.0 % Immature Granulocyte % 0.4 0.0 - 0.9 % Neutrophils Absolute 3.52 2.00 - 7.00 K/mm3 Absolute Immature Granulocyte 0.02 0.00 - 0.09 K/mm3 Lymphocytes Absolute 1.64 1.00 - 3.00 K/mm3 Monocytes Absolute 0.37 0.20 - 1.00 K/mm3 Eosinophils Absolute 0.05 0.00 - 0.50 K/mm3 Basophils Absolute 0.04 0.00 - 0.10 K/mm3 Comprehensive metabolic panel Collection Time: 04/06/24 2:59 PM Result Value Ref Range Glucose 97 70 - 100 mg/dL BUN 8 6 - 19 mg/dL Creatinine 1.0 0.4 - 1.2 mg/dL eGFR >60.00 >60.00 mL/min/1.73m*2 Sodium 139 135 - 145 mmol/L Potassium 4.0 3.4 - 5.1 mmol/L Chloride 99 98 - 109 mmol/L CO2 26 24 - 32 mmol/L Anion Gap 14 (H) 6 - 12 mmol/L Calcium 10.0 8.5 - 10.5 mg/dL Total Bilirubin 0.4 0.2 - 1.2 mg/dL Alkaline Phosphatase 84 40 - 129 U/L ALT (SGPT) 46 (H) 0 - 40 U/L AST 22 0 - 37 U/L Total Protein 9.0 (H) 6.0 - 8.5 g/dL Albumin 4.8 3.3 - 5.2 g/dL Estimated Creatinine Clearance 135.6 mL/min Acetaminophen level Collection Time: 04/06/24 2:59 PM Result Value Ref Range Acetaminophen Level <5.1 <15.0 ug/mL Salicylate level Collection Time: 04/06/24 2:59 PM Result Value Ref Range Salicylate Level <=3.0 3.0 - 30.0 mg/dL Ethanol Collection Time: 04/06/24 2:59 PM Result Value Ref Range Ethanol <=10 0 - 10 mg/dL COVID-19 ([facility]) Collection Time: 04/06/24 2:59 PM Specimen: Nasopharynx; Swab Result Value Ref Range COVID-19 ([facility]) Negative Negative Urine drugs of abuse screen Collection Time: 04/06/24 3:39 PM Result Value Ref Range Amphetamines, Urine Screen None Detected None Detected Barbiturates, Urine Screen None Detected None Detected Benzodiazepines, Urine Screen None Detected None Detected Cocaine, Urine Screen None Detected None Detected Opiates, Urine Screen None Detected None Detected Cannabinoids (THC), Urine Screen None Detected None Detected Tricyclic Antidepressants, Urine Screen None Detected None Detected Fentanyl, Urine Screen None Detected None Detected Methadone, Urine Screen None Detected None Detected Oxycodone, Urine Screen None Detected None Detected Buprenorphine, Urine Screen None Detected None Detected Phencyclidine, Urine Screen None Detected None Detected Extra Urine Culture Tube Collection Time: 04/06/24 3:39 PM Specimen: Urine, Clean Catch Result Value Ref Range Extra Tube Urinalysis with reflex Collection Time: 04/06/24 3:39 PM Result Value Ref Range Color, Urine Yellow Colorless, Yellow Clarity, Urine Clear Clear Specific [place], Urine 1.004 1.002 - 1.030 pH, Urine 7.0 5.0 - 8.0 Leukocytes, Urine Negative Negative Nitrite, Urine Negative Negative Protein, Urine Negative Negative Glucose, Urine Negative Negative Ketones, Urine Negative Negative Bilirubin, Urine Negative Negative Blood, Urine Negative Negative ED COURSE & MEDICAL DECISION MAKING lCive Chow is a 24 y.o. male who presents to the ED with paranoia. ED and nursing records reviewed. Additional pertinent available records reviewed: Last seen 12/30/2019 secondary to catatonia and psychosis, mushroom use. On initial presentation exam notable for paranoia but redirectable Differential includes but not limited to psychosis, either organic and/or drug- induced, intoxication versus withdrawal syndrome, occult trauma, occult infection. Initial plan for lab work, urinalysis, crisis team eval and reassess. Discussion of management with physician, qualified health professional, and/or appropriate source: Ally Escalation of care to admission or observation considered: Although not emergently indicated Consideration of treatments or testing, not performed: CT head entertained although did have cross-sectional imaging of brain in 2019 which was reportedly normal Chronic Conditions affecting care include: As above Social Determinants of Health significantly affecting the care and disposition of this patient include: None Based on my history and exam, patient has an emergency psychiatric condition that requires care coordination by crisis team for potential inpatient level of care. Patient is pending mental health evaluation at the time of this dictation and their history, diagnostics and physical exam demonstrate that they are medically stable for psychiatric confinement. Patient seen by [facility] and psychiatry andwe are in agreement he would be best served for inpatient psychiatric stabilization. Signout to my colleague at change of shift pending bed search FINAL IMPRESSION 1. Mood disturbance 2. Encounter for medical screening examination DISPOSITION Bed search CONDITION Stable Electronically signed by: PRINCE LÓPEZ DO, 04/06/2024 1:40 PM This Emergency Department patient encounter note was created using voice- recognition software and in real time during the ED visit. Please excuse any typographical errors that have not been edited out. Note to patient: The cures act makes medical notes like these available to patients inthe interest of transparency. However, be advised this is a medical document. It is intended primarily as iydd-xk-kwsu communication. It is written in medical language and may contain abbreviations or verbiage that are unfamiliar. It may appear blunt or direct. This is because medical documents areintended to carry relevant information, facts as evident, and the clinical opinion of the practitioner only as of the time of writing. Prince López DO 04/06/241999 * Kourtney Segura RN - 04/06/2024 1:36 PM EST Clive Chow is a 24 y.o. male presenting with Delusional and Mental Health Problem BIBA from [place] [employer], on [address] for delusions, pt believes people are stalking him, pt was going up to random people in public and accusing them of stalking him and causing him harm. Pt is also reporting capgras delusions. Per [facility] for police department, pt presented with no insight and grossly impaired judgement, and has been acting on his delusional beliefs. documented in this encounter Miscellaneous Notes * Behavioral Health - Jeronimo Farias MSW - 04/07/2024 3:44 PM EST [facility] @ [facility], Dr. Camargo. * Behavioral Health - Catrina Gregory MSW - 04/07/2024 7:42 AM EST The Client has been faxed out to the following for bed placement: Faxed to [place] [phone] * Behavioral Health - Milady Titus MSW - 04/06/2024 9:34 PM EST [facility] is willing to accept the Client once they start the process of obtaining new insurance coverage. [facility] will touch base with [facility] [employer] tomorr, 04/07 and report back to [facility]. * Behavioral Health Milady Beavers MSW - 04/06/2024 7:59 PM EST Rose Mckeon was reviewing the Client but is unable to proceed with an admission due to lack of insurance coverage. Client has no active insurance plan and [facility]. [facility] will need to contact [facility] [employer] tomorrow, 04/07. * Behavioral Health - Milady Titus MSW - 04/06/2024 7:28 PM EST Client faxed to: [facility] documented in this encounter Plan of Treatment Pending Results Name Type Priority Associated Diagnoses Date /Time ECG ECG STAT 04/07/2024 8:5 3 AM EST documented as of this encounter Procedures Procedure Name Priority Date/Time Associated Diagnosis Comments ECG 12-LEAD STAT 04/07/2024 8:53 AM EST URINALYSIS WITH REFLEX STAT 3:39 PM EST EXTRA URINE CULTURE TUBE STAT 04/06/2024 3:39 PM EST URINE DRUGS OF ABUSE SCREEN STAT 04/06/2024 3:39 PM EST URINALYSIS WITH REFLEX STAT 3:39 PM EST COVID-19 ([facility]) STAT 04/06/2024 2:59 PM EST CBC WITH AUTO DIFFERENTIAL STAT 04/06/2024 2:59 PM EST ETHANOL STAT 04/06/2024 2:59 PM EST ACETAMINOPHEN LEVEL STAT 04/06/2024 2 :59 PM EST SALICYLATE LEVEL STAT 04/06/2024 2:59 PM EST COMPREHENSIVE METABOLIC PANEL STAT 04/06/2024 2:59 PM EST documented in this encounter Results * Urinalysis with reflex (04/06/2024 3:39 PM EST) Color, Urine Yellow Colorless, Yellow 04/06/2024 3:59 PM [facility] Clarity, Urine Clear Clear 04/06/2024 3:59 PM [facility] Specific [place], Urine 1.004 1.002 - 1.030 04/06/2024 3:59 PM [facility] pH, Urine 7.0 5.0 - 8.0 04/06/2024 3:59 PM [facility] Leukocytes, Urine Negative Negative 04/06/2024 3:59 PM [facility] Nitrite, Urine Negative Negative 04/06/2024 3:59 PM [facility] Protein, Urine Negative Negative 04/06/2024 3:59 PM [facility] Glucose, Urine Negative Negative 04/06/2024 3:59 PM [facility] Ketones, Urine Negative Negative 04/06/2024 3:59 PM [facility] Bilirubin, Urine Negative Negative 04/06/2024 3:59 PM [facility] Blood, Urine Negative Negative 04/06/2024 3:59 PM [facility] Urine Urine specimen obtained by clean catch procedure / Unknown Non-blood Collection / Unknown 04/06/2024 3:39 PM EST 04/06/2024 3:50 PM EST [facility] - 04/06/2024 3:59 PM EST Per protocol, no culture performed. For protocol inquiries or add-on testing, please call Infectious Disease at [phone] or [phone]. Prince López DO LAB URINE ORDERABLES Fi nal Result [facility] [address] [place] [address], [place] [phone] * Extra Urine Culture Tube (04/06/2024 3:39 PM EST) Extra Tube 04/06/2024 5:01 PM [facility] Comment:An Extra tube was co llected from this patient. Please follow add on workflow or contact the Laboratory if you wish to place orders on this specimen. Urine Urine specimen obtained by clean catch procedure / Unknown Non-blood Collection / Unknown 04/06/2024 3:39 PM EST 04/06/2024 3:49 PM EST Prince López DO LAB MICROBIOLOGY - GENE RAL ORDERABLES Final Result [facility] [address] [place] [address], * Urine drugs of abuse screen (04/06/2024 3:39 PM EST) Pathologist [facility] Amphetamines, Urine Screen None Detected None Detected 04/06/2024 4:21 PM [facility] Barbiturates, Urine Screen None Detected None Detected 04/06/2024 4:21 PM [facility] Benzodiazepines, Urine Screen None Detected None Detected 04/06/2024 4:21 PM [facility] Cocaine, Urine Screen None Detected None Detected 04/06/2024 4:21 PM [facility] Opiates, Urine Screen None Detected None Detected 04/06/2024 4:21 PM [facility] Cannabinoids (THC), Urine Screen None Detected None Detected 04/06/2024 4:21 PM [facility] Tricyclic Antidepressants, Urine Screen None Detected None Detected 04/06/2024 4:21 PM [facility] Fentanyl, Urine Screen None Detected None Detected 04/06/2024 4:21 PM [facility] Methadone, Urine Screen None Detected None Detected 04/06/2024 4:21 PM [facility] Oxycodone, Urine Screen None Detected None Detected 04/06/2024 4:21 PM [facility] Buprenorphine, Urine Screen None Detected None Detected 04/06/2024 4:21 PM [facility] Phencyclidine, Urine Screen None Detected None Detected 04/06/2024 4:21 PM [facility] Urine Urine specimen obtained by clean catch procedure / Unknown Non-blood Collection / Unknown 04/06/2024 3:39 PM EST 04/06/2024 3:50 PM [facility] - 04/06/2024 4:21 PM EST This is a screening test for urine [...] Buprenorphine ?5 ng/ml Phencyclidine ? 25 ng/ml us Prince López DO LAB URINE ORDERABLES Fi nal Result [facility] [address] [place] [address], * COVID-19 ([facility]) (04/06/2024 2:59 PM EST) [facility] Signature COVID-19 ([facility]) PCR Negative Negative LTT PANTHER ANALYZER-DP H 04/06/2024 6:11 PM EST [facility] Swab (Nasopharynx) Non-blood Collection / Unknown 04/06/2024 2:59 PM EST 04/06/2024 3:06 PM EST Prince López DO LAB MICROBIOLOGY - GENE RAL ORDERABLES Final Result [facility] [address] [place] [address], * Ethanol (04/06/2024 2:59 PM EST) Ethanol <=10 0 - 10 mg/dL 04/06/2024 4:01 PM EST [facility] Comment:NONE DETECTED: Resul t <10 should be interpreted as NONE DETECTED. Blood Venous blood / Unknown Venipuncture / Unknown 04/06/2024 2:59 PM EST 04/06/2024 3:29 PM EST Prince López DO LAB BLOOD ORDERABLES Fi nal Result Performing Organization Address City/[facility]/ZIP Co de Phone Number [facility] [address] [place] [address], * Salicylate level (04/06/2024 2:59 PM EST) Salicylate Level <=3.0 3.0 - 30.0 mg/dL 04/06/2024 4:01 PM EST [facility] Blood Venous blood / Unknown Venipuncture / Unknown 04/06/2024 2:59 PM EST 04/06/2024 3:29 PM EST Prince López DO LAB BLOOD ORDERABLES Fi nal Result [facility] [address] [place] [address], * Acetaminophen level (04/06/2024 2:59 PM EST) Acetaminophen Level <5.1 <15.0 ug/mL 04/06/2024 4:01 PM [facility] Blood Venous blood / Unknown Venipuncture / Unknown 04/06/2024 2:59 PM EST 04/06/2024 3:29 PM EST Prince López DO LAB BLOOD ORDERABLES Fi nal Result [facility] [address] [place] [address], [place] [phone] * (ABNORMAL) Comprehensive metabolic panel (04/06/2024 2:59 PM EST) Glucose 97 70 - 100 mg/dL 04/06/2024 3:36 PM [facility] BUN 8 6 - 19 mg/dL 04/06/2024 3:36 PM [facility] Creatinine 1.0 0.4 - 1.2 mg/dL 04/06/2024 3:36 PM [facility] eGFR >60.00 >60.00 mL/min/1.7 3m*2 04/06/2024 3:36 PM [facility] Sodium 139 135 - 145 mmol/L 04/06/2024 3:36 PM [facility] Potassium 4.0 3.4 - 5.1 mmol/L 04/06/2024 3:36 PM [facility] Chloride 99 98 - 109 mmol/L 04/06/2024 3:36 PM [facility] CO2 26 24 - 32 mmol/L 04/06/2024 3:36 PM [facility] Anion Gap 14(H) 6 - 12 mmol/L 04/06/2024 3:36 PM [facility] Calcium 10.0 8.5 - 10.5 mg/dL 04/06/2024 3:36 PM [facility] Total Bilirubin 0.4 0.2 - 1.2 mg/dL 04/06/2024 3:36 PM [facility] Alkaline Phosphatase 84 40 - 129 U/L 04/06/2024 3:36 PM [facility] ALT (SGPT) 46(H) 0 - 40 U/L 04/06/2024 3:36 PM [facility] AST 22 0 - 37 U/L 04/06/2024 3:36 PM [facility] Total Protein 9.0(H) 6.0 - 8.5 g/dL 04/06/2024 3:36 PM [facility] Albumin 4.8 3.3 - 5.2 g/dL 04/06/2024 3:36 PM [facility] Estimated Creatinine Clearance 135.6 mL/min 04/06/2024 3:36 PM [facility] Blood Venous blood / Unknown Venipuncture / Unknown 04/06/2024 2:59 PM EST 04/06/2024 3:04 PM EST Prince López DO LAB BLOOD ORDERABLES Fi nal Result [facility] [address] [place] [address], [place] [phone] * (ABNORMAL) CBC with auto differential (04/06/2024 2:59 PM EST) WBC 5.6 4.5 - 10.8 10*3 ??l 04/06/2024 3:18 PM [facility] RBC 5.37 4.70 - 6.10 10*6 ??l 04/06/2024 3:18 PM [facility] Hemoglobin 17.2 14.0 - 18.0 g/dL 04/06/2024 3:18 PM [facility] Hematocrit 50.5 42.0 - 52.0 % 04/06/2024 3:18 PM [facility] MCV 94 80 - 95 fL 04/06/2024 3:18 PM [facility] MCH 32.0 25.4 - 39.0 pg 04/06/2024 3:18 PM [facility] MCHC 34.1 31.0 - 37.0 g/dL 04/06/2024 3:18 PM [facility] RDW 11.6 11.5 - 14.5 % 04/06/2024 3:18 PM [facility] Platelets 313 150 - 450 10*3 ??l 04/06/2024 3:18 PM [facility] MPV 9.0 7.0 - 11.0 fL 04/06/2024 3:18 PM [facility] Neutrophils % 62.3 40.0 - 80.0 % 04/06/2024 3:18 PM [facility] Lymphocytes % 29.1 20.0 - 40.0 % 04/06/2024 3:18 PM [facility] Monocytes % 6.6 2.0 - 10.0 % 04/06/2024 3:18 PM [facility] Eosinophils % 0.9(L) 1.0 - 6.0 % 04/06/2024 3:18 PM [facility] Basophils % 0.7 0.0 - 1.0 % 04/06/2024 3:18 PM [facility] Immature Granulocyte % 0.4 0.0 - 0.9 % 04/06/2024 3:18 PM [facility] Neutrophils Absolute 3.52 2.00 - 7.00 K/mm3 04/06/2024 3:18 PM [facility] Absolute Immature Granulocyte 0.02 0.00 - 0.09 K/mm3 04/06/2024 3:18 PM [facility] Lymphocytes Absolute 1.64 1.00 - 3.00 K/mm3 04/06/2024 3:18 PM [facility] Monocytes Absolute 0.37 0.20 - 1.00 K/mm3 04/06/2024 3:18 PM [facility] Eosinophils Absolute 0.05 0.00 - 0.50 K/mm3 04/06/2024 3:18 PM [facility] Basophils Absolute 0.04 0.00 - 0.10 K/mm3 04/06/2024 3:18 PM [facility] Blood Venous blood / Unknown Venipuncture / Unknown 04/06/2024 2:59 PM EST 04/06/2024 3:09 PM EST us Prince López DO LAB BLOOD ORDERABLES Fi nal Result [facility] [address] [place] [address], documented in this encounter Visit Diagnoses Diagnosis Schizophrenia ([facility]/HCC)- Primary Unspecified schizophrenia, unspecified condition Mood disturbance Encounter for medical screening examination documented in this encounter Admitting Diagnoses Diagnosis Schizophrenia (CMS/HCC) Unspecified schizophrenia, unspecified condition documented in this encounter Administered Medications Active Administered Medications - up to 3 most recent administrations Medication Order MAR Action Action Date Dose Rate Site OLANZapine (ZYPREXA) tablet 5 mg 5 mg, Oral, 3 times daily PRN, restlessness / irritability, Psychosis (hallucinations, delusions, or disorganized thinking/speech), Starting on Thu04/06/24 at 1608 Given 04/06/2024 8:58 PM EST 5 mg documented in this encounter Active and Recently Administered Medications Times are shown in EST. Scheduled Medication Order 04/05/2024 04/06/2024 04/07/2024 OLANZapine (ZYPREXA) tablet 5 mg 5 mg, Oral, Nightly, First dose on Thu04/06/24 at 2100 2100 (Not Given - Provider: Keila Riggins RN - Reason: Other (comment) - Comment: already given) 2100 (Due) PRN Medication Order 04/05/2024 04/06/2024 04/07/2024 cloNIDine (CATAPRES) tablet 0.1 mg 0.1 mg, Oral, 3 times daily PRN, anxiety, Starting on Thu04/06/24 at 1608, Hold for SBP less than: 100 ibuprofen (ADVIL,MOTRIN) tablet 600 mg 600 mg, Oral, Every 6 hours PRN, pain 1-3 or if patient refuses opiate (if ordered), pain 4-6 or if patient refuses opiate (if ordered), or pain 7-10, Starting on Thu04/06/24 at 1608, Take with food or milk OLANZapine (ZYPREXA) tablet 5 mg 5 mg, Oral, 3 times daily PRN, restlessness / irritability, Psychosis (hallucinations, delusions, or disorganized thinking/speech), Starting on Thu04/06/24 at 1608 2058 (Given - Provider: Keila Riggins RN) documented in this encounter Additional Health Concerns Infection Onset Date Last Indicated Resolved Time Covid Possible 04/06/2024 04/06/2024 04/06/2024 6: 11 PM EST documented as of this encounter Care Teams Lamination Assembler Relationship Specialty Start Date End Date Required, No Pcp/Pcp Not [address] [facility] [place] [address] PCP - General Diesel Stationary Engineer 04/06/24 documented as of this encounter
--- OUTSIDE RECORDS SUMMARY | 2024-04-07 21:27 | XMS_ITS ---
Author Organization [facility] Address [address] [place] [address] Phone Care Team Providers Care Scrap Bunch Maker Name Role Phone Gilda Shultz MD Primary Care Provi sharon Stanley Simmons Unavailable [phone] Gilda Shultz MD Unavailable [phone] Transition to Adult Primary Care Status:Enrolled (Active) Start date:2024 Enrollment date:2024 Current support & services provided:[facility] Continued Care and Services Coordination
--- OUTSIDE RECORDS SUMMARY | 2024-04-07 21:27 | XMS_ITS | Clinical Summary ---
Author Organization [facility] Address [address] [place] [address] Care Team Providers Care Refinery Operator Alkylation Name Role Phone Unavailable Primary Care Provider Unavailabl e Social History Tobacco Use Types Packs/Day Years Used Date Smoking Tobacco: Never Assessed Sex and Gender Information Value Date Recorded Sex Assigned at Not on file Legal Sex Male 11:35 PM EST Gender Identity Not on file Sexual Orientation Not on file Plan of Treatment Health Maintenance Due Date Last Done Comments Blood Pressure 2000 Depression Screening 2004 Hepatitis C Screening 2018 DTaP,Tdap,and Td Vaccines (1 - Tdap) 2019 COVID-19 Vaccine ( - 2023-2 5 season) 2023 Influenza Vaccine (#1) 2023 Meningococcal Vaccines Aged Out No lo nger eligible based on patient's age to complete this topic Pneumococcal Vaccine: Pediat rics (0 to 5 Years) and At-Risk Patients (6 to 64 Years) Aged Out No longer eligible b ased on patient's age to complete this topic"
[2024-04-07 22:00] VITALS: BP 129/102; PULSE 71; RESP 18; TEMP 36.6; O2SAT 98
[2024-04-08] VITALS: BMI 30.7
--- NOTE | 2024-04-08 04:58 | PC.NURSE ---
Pt is a 24 yo male admitted to the unitafter referral from CARE team. Pt arrived on unit at 2200 on 04/07/24 via inter hospital transfer facilitated by EMS>
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
[2024-04-08 07:25] VITALS: BP 134/83; PULSE 57; RESP 16; TEMP 36.4; O2SAT 99
[2024-04-08 08:57] LABS: Alanine Aminotransferase 54 U/L (0-40); Albumin Level 4.5 g/dL (3.5-5.0); Alkaline Phosphatase 64 U/L (39-117); Anion Gap 12 (12-20); Aspartate Amino Transferase 23 U/L (5-37); Bilirubin Total 0.7 mg/dL (0.0-1.0); Blood Urea Nitrogen 11 mg/dL (9-16); Calcium 10.1 mg/dL (8.4-10.2); Carbon Dioxide 28 mmol/L (22-29); Chloride 106 mmol/L (96-108); Creatinine Clr Calc Pharmacy 141.4; Estimated Glomerular Filt Rate > 60; Glucose Random 93 mg/dL (60-115); Potassium 4.2 mmol/L (3.3-5.1); Sodium 142 mmol/L (135-145); Total Protein 8.2 g/dL (6.5-8.0)
--- NOTE | 2024-04-08 09:30 | P.HPPS_ITS ---
HPI Date of Service: 04/08/24 Chief Complaint: Schizophrenia Sources of Information: patient interviewed, chart reviewed and crisis/core team assessment reviewed HPI Subjective Notes: Liriano Warning and Conditional Voluntary Narrative: Patient is a 24-year-old male with history of schizophrenia who presented to ER on a section 12 by [place] police after making delusional and persecutory statements. Per crisis report, patient was brought into ED by police due to delusions of reference and persecutory delusions related to being gang stalked , stating that his life is at risk. Patient reports seeing imposters of family members and friends. He reports approaching strangers on the street accusing them of stocking/causing harm to him. Patient presents guarded and paranoid while speaking to ED staff. denies SI/HI/AH/VH. Patient reports having psychiatric providers through [facility] denies taking any medications at this time. 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 Patient reports history of taking Zyprexa, however stopped due to weight gain. Utox negative. No history of SA/SIB. Patient reports adequate sleep and appetite. During admission assessment, patient presents alert and oriented x3. Calm and cooperative. Patient reports feeling anxious ; patient stated, I went to the police to file some complaints to get an investigation started. I have been observing things for the last 3-4 years. I feel like my information is being leaked. I keep seeing people that resemble me and people I know. I'm not sure why someone would try to stalk me. I wanted to make sure it was not a hate crime . Patient reports that he would never go up to any of these look a likes . Patient stated, I just take note of it . denies SI/HI/VH/AH. He reports discussing starting on Latuda with his outpatient psychiatrist however, he believes that he does not need to be on any medications at this time. Patient stated, I know people think I'm being paranoid but I have been noticing this since 2020 . Discussed starting on Latuda; risks/benefits reviewed. Past Psychiatric History: Outpatient psychiatric providers through [facility]. Denies history of SA/SIB Patient reports history of taking Abilify and Zyprexa. Reports he stopped taking Zyprexa due to weight gain. 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 Single. No kids. 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 Substance History: pt reports occasional alcohol and marijuana. Trauma History: yes Diagnostics Vital Signs (24Hr): Vital Signs - 24 hr 04/07/24 22:00 04/08/24 07:25 Temperature 97.8 F 97.6 F Pulse Rate 71 57 Respiratory Rate 18 16 Blood Pressure 129/102 H 134/83 Pulse Oximetry 98 99 Oxygen Delivery Method Room Air Room Air BMI result Body Mass Index 30.7 Labs 04/08/24 07:54 Labs: Laboratory Results - last 48 hr 04/08/24 07:54 Sodium 142 Potassium 4.2 Chloride 106 Carbon Dioxide 28 Anion Gap 12 BUN 11 Creatinine 0.97 Estim Creat Clear Calc 141.4 Estimated GFR > 60 Random Glucose 93 Calcium 10.1 Total Bilirubin 0.7 AST 23 ALT 54 H Alkaline Phosphatase 64 Total Protein 8.2 H Albumin 4.5 Meds/Allergies Meds Home Medications ?Medication ?Instructions ?Recorded ?Confirmed ?Type clonidine HCl 0.1 mg tablet 0.1 mg PO TID PRN Anxiety 04/08/24 04/08/24 History ibuprofen 600 mg tablet 600 mg PO Q6H PRN Pain 04/08/24 04/08/24 History olanzapine 5 mg tablet 5 mg PO BEDTIME 04/08/24 04/08/24 History olanzapine 5 mg tablet 5 mg PO TID PRN Psychosis 04/08/24 04/08/24 History Allergies Allergies Allergy/AdvReac Type Severity Reaction Status Date / Time No Known Allergies Allergy Verified 04/08/24 00:07 Mental Status Exam Mental Status Exam Narrative: Pt is alert and oriented; behavior is cooperative and calm; dressed in casual attire; mood is described as anxious ; eye contact appropriate; Speech is normal rate, volume and not pressured; thought process is organized; paranoid; denies SI/HI/AH/VH Assessment & Plan Assessment & Plan (1) Schizophrenia: Status: Acute Code(s): F20.9 - Schizophrenia, unspecified Plan Patient is a 24-year-old male with history of schizophrenia who presented to ER on a section 12 by [place] police after making delusional and persecutory statements. Plan: CV 15 minute safety checks Obtain collateral Start: Latuda 40mg PO daily Encourage groups Discharge planning Patient educated on: diagnosis and medication risk/benefits Reason for continued inpatient stay Substantial Risk for: med/psych decompensation Statement Statement: I have reviewed the history and physical and performed a pertinent examination on my patient. No changes have occurred unless specified. If the History and Physical was not performed prior to admission, the Hospitalist's service will be consulted for completing the admission physical. Time Spent With Patient Time: Total time managing care of this patient today _60___ minutes.
[2024-04-08] MEDS: Acetaminophen 325 MG TABLET 650 MG PO ×2 (10:28→20:06)
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
--- NOTE | 2024-04-08 16:32 | PC.NURSE ---
Pt asked if his car keys could be given to his parents. Pt and pt's father signed pt's belongings list stating that keys were given to his parents on 04/08 at 1628.
[2024-04-08 20:00] VITALS: BP 134/76; PULSE 87; RESP 16; TEMP 36.8; O2SAT 95
[2024-04-09 07:45] VITALS: BP 138/91; PULSE 65; RESP 14; TEMP 36.3; O2SAT 100
[2024-04-09 07:46] LABS: Estimated Average Glucose 85 mg/dL; Hemoglobin A1C 112.2289 umol/L; Hemoglobin A1c % 4.6 % (<6.0); Total Hemoglobin (HGBA1C) 4118.8456 umol/L
[2024-04-09 07:47] LABS: Cholesterol 159 mg/dL (<200); HDL Cholesterol 41 mg/dL (>40); LDL Cholesterol Calculated 90 mg/dL (<100); Triglycerides 143 mg/dL (<150)
[2024-04-09 08:03] LABS: TSH reflex Free T4 1.52 uIU/mL (0.32-4.0)
--- NOTE | 2024-04-09 08:47 | HO.PSYCHPN ---
Subjective Subjective Date of Service: 04/09/24 Reason For Visit: Schizophrenia Subjective Notes: 3 Day Interim History: 3 day notice up on 04/13/24. Refused latuda; pt reports he is not interested in taking it right not but I'll let you know if I change my mind . Pt did not make any paranoid statements; he did mention that this is the first time in awhile that no one looks familiar . Pt reports sleeping well. denies SI/HI/VH/AH. Medication Compliance: No Side effects from medications: No Review of Systems Constitutional: Reports as per HPI Eyes: Reports as per HPI Reports as per HPI Cardiovascular: Reports as per HPI Respiratory: Reports as per HPI Gastrointestinal: Reports as per HPI Genitourinary: Reports as per HPI Musculoskeletal: Reports as per HPI Skin/Breast: Reports as per HPI Reports as per HPI Psychiatric: Reports as per HPI Endocrine: Reports as per HPI Hematologic/Lymphatic: Reports as per HPI Allergic/Immunologic: Reports as per HPI Mental Status Exam Mental Status Exam Narrative: Pt is alert and oriented; behavior is cooperative and calm; dressed in casual attire; mood is described as anxious ; eye contact appropriate; Speech is normal rate, volume and not pressured; thought process is organized; no paranoia expressed denies SI/HI/AH/VH Diagnostics Vital Signs (24Hr): Vital Signs - 24 hr 04/08/24 20:00 04/09/24 07:45 Temperature 98.2 F 97.3 F Pulse Rate 87 65 Respiratory Rate 16 14 Blood Pressure 134/76 138/91 H Pulse Oximetry 95 100 Oxygen Delivery Method Room Air Room Air BMI result Body Mass Index 30.7 Labs 04/08/24 07:54 Labs: Laboratory Results - last 48 hr 04/08/24 04/09/24 07:54 07:11 Sodium 142 Potassium 4.2 Chloride 106 Carbon Dioxide 28 Anion Gap 12 BUN 11 Creatinine 0.97 Estim Creat Clear Calc 141.4 Estimated GFR > 60 Random Glucose 93 Estimat Average Glucose 85 Hemoglobin A1c % 4.6 Calcium 10.1 Total Bilirubin 0.7 AST 23 ALT 54 H Alkaline Phosphatase 64 Total Protein 8.2 H Albumin 4.5 Triglycerides 143 Cholesterol 159 LDL Cholesterol, Calc 90 HDL Cholesterol 41 TSH 1.52 Medications Medications Current Medications Acetaminophen (Acetaminophen 325 Mg Tablet) 650 mg PO Q6H PRN PRN Reason: Headache/Pain Mild Scale (1-3) Last Admin: 04/08/24 20:06 Dose: 650 mg Al Hydroxide/Mg Hydroxide (Magnesium Hydrox/Alum Hydrox 30 Ml Oral.Susp) 30 ml PO Q6H PRN PRN Reason: Heartburn/Nausea Hydroxyzine HCl (Hydroxyzine Hcl 25 Mg Tablet) 25 mg PO Q6H PRN PRN Reason: Anxiety Lurasidone HCl (Lurasidone Hcl 40 Mg Tablet) 40 mg PO DAILY [facility] Last Admin: 04/08/24 17:03 Dose: Not Given Magnesium Hydroxide (Milk Of Magnesia 30 Ml Oral.Susp) 30 ml PO DAILY PRN PRN Reason: Constipation Nicotine Polacrilex (Nicotine Polacrilex 2 Mg Gum) 4 mg BUCCAL Q2H PRN PRN Reason: Nicotine Cravings Olanzapine (Olanzapine 5 Mg Tablet) 5 mg PO TID PRN PRN Reason: agitation Trazodone HCl (Trazodone Hcl 50 Mg Tablet) 50 mg PO BEDTIME MRX1 PRN PRN Reason: Insomnia Allergies Allergies Allergy/AdvReac Type Severity Reaction Status Date / Time No Known Allergies Allergy Verified 04/08/24 00:07 Assessment & Plan Assessment & Plan (1) Schizophrenia: Status: Acute Code(s): F20.9 - Schizophrenia, unspecified Plan Patient is a 24-year-old male with history of schizophrenia who presented to ER on a section 12 by [employer] police after making delusional and persecutory statements. Plan: CV 15 minute safety checks Obtain collateral Start: Latuda 40mg PO daily [facility] Discharge planning 04/09: 3 day notice up on 04/13/24. Refused latuda; pt reports he is not interested in taking it right not but I'll let you know if I change my mind . Pt did not make any paranoid statements; he did mention that this is the first time in awhile that no one looks familiar . Pt reports sleeping well. denies SI/HI/VH/AH. continue current tx plan. Patient educated on: diagnosis and medication risk/benefits Reason for continued inpatient stay Substantial Risk for: med/psych decompensation Time Spent With Patient Time: Total time managing care of this patient today _20___ minutes.
[2024-04-09] MEDS: Acetaminophen 325 MG TABLET 650 MG PO ×2 (09:20→17:34)
[2024-04-09 20:00] VITALS: BP 137/76; PULSE 76; RESP 16; TEMP 36.6; O2SAT 98
[2024-04-10 07:56] VITALS: BP 124/85; PULSE 81; RESP 18; TEMP 36.4; O2SAT 97
[2024-04-10] MEDS: Lurasidone HCl 40 MG TABLET PO (08:44)
--- NOTE | 2024-04-10 09:04 | P.PNPSI_ITS ---
Subjective Subjective Date of Service: 04/10/24 Reason For Visit: Schizophrenia Subjective Notes: 3 Day Interim History: 3 day notice up on 04/13/24. Took Latuda this morning. Pt reports feeling fine today; pt stated, I feel like the police blew what I said out of proportion. They made it sound like I'm not mentally sound . per nursing slept 8 hours. denies SI/HI/VH/AH. Medication Compliance: Intermittent Side effects from medications: No Attending Groups: No Mental Status Exam Mental Status Exam Narrative: Pt is alert and oriented; behavior is cooperative and calm; dressed in casual attire; mood is described as fine ; eye contact appropriate; Speech is normal rate, volume and not pressured; thought process is organized; focused on discharge. denies SI/HI/AH/VH Diagnostics Vital Signs (24Hr): Vital Signs - 24 hr 04/09/24 20:00 04/10/24 07:56 Temperature 97.8 F 97.6 F Pulse Rate 76 81 Respiratory Rate 16 18 Blood Pressure 137/76 124/85 Pulse Oximetry 98 97 Oxygen Delivery Method Room Air Room Air BMI result Body Mass Index 30.7 Labs 04/08/24 07:54 Labs: Laboratory Results - last 48 hr 04/09/24 07:11 Estimat Average Glucose 85 Hemoglobin A1c % 4.6 Triglycerides 143 Cholesterol 159 LDL Cholesterol, Calc 90 HDL Cholesterol 41 TSH 1.52 Medications Medications Current Medications Acetaminophen (Acetaminophen 325 Mg Tablet) 650 mg PO Q6H PRN PRN Reason: Headache/Pain Mild Scale (1-3) Last Admin: 04/09/24 17:34 Dose: 650 mg Al Hydroxide/Mg Hydroxide (Magnesium Hydrox/Alum Hydrox 30 Ml Oral.Susp) 30 ml PO Q6H PRN PRN Reason: Heartburn/Nausea Hydroxyzine HCl (Hydroxyzine Hcl 25 Mg Tablet) 25 mg PO Q6H PRN PRN Reason: Anxiety Lurasidone HCl (Lurasidone Hcl 40 Mg Tablet) 40 mg PO DAILY [facility] Last Admin: 04/10/24 08:44 Dose: 40 mg Magnesium Hydroxide (Milk Of Magnesia 30 Ml Oral.Susp) 30 ml PO DAILY PRN PRN Reason: Constipation Nicotine Polacrilex (Nicotine Polacrilex 2 Mg Gum) 4 mg BUCCAL Q2H PRN PRN Reason: Nicotine Cravings Olanzapine (Olanzapine 5 Mg Tablet) 5 mg PO TID PRN PRN Reason: agitation Trazodone HCl (Trazodone Hcl 50 Mg Tablet) 50 mg PO BEDTIME MRX1 PRN PRN Reason: Insomnia Allergies Allergies Allergy/AdvReac Type Severity Reaction Status Date / Time No Known Allergies Allergy Verified 04/08/24 00:07 Assessment & Plan Assessment & Plan (1) Schizophrenia: Status: Acute Code(s): F20.9 - Schizophrenia, unspecified Plan Patient is a 24-year-old male with history of schizophrenia who presented to ER on a section 12 by [employer] police after making delusional and persecutory statements. Plan: CV 15 minute safety checks Obtain collateral Start: Latuda 40mg PO daily [facility] Discharge planning 04/09: 3 day notice up on 04/13/24. Refused latuda; pt reports he is not interested in taking it right not but I'll let you know if I change my mind . Pt did not make any paranoid statements; he did mention that this is the first time in awhile that no one looks familiar . Pt reports sleeping well. denies SI/HI/VH/AH. continue current tx plan. 04/10: Took Latuda this morning. Pt reports feeling fine today; pt stated, I feel like the police blew what I said out of proportion. They made it sound like I'm not mentally sound . per nursing slept 8 hours. denies SI/HI/VH/AH. Patient educated on: diagnosis and medication risk/benefits Reason for continued inpatient stay Substantial Risk for: med/psych decompensation Time Spent With Patient Time: Total time managing care of this patient today _20___ minutes.
[2024-04-10] MEDS: Acetaminophen 325 MG TABLET 650 MG PO (17:22)
[2024-04-10 20:00] VITALS: BP 139/87; PULSE 69; RESP 16; TEMP 36.5; O2SAT 99
[2024-04-11 07:25] VITALS: BP 127/82; PULSE 68; RESP 16; TEMP 36.5; O2SAT 93
--- NOTE | 2024-04-11 11:22 | HO.PSYCHPN ---
Subjective Subjective Date of Service: 04/11/24 Reason For Visit: Schizophrenia Subjective Notes: 3 Day Interim History: 3 day notice up on 04/13/24. Refused latuda; states he would like to speak to his outpatient provider before continuing medication. Pt reports feeling fine today; reports sleeping well. denies SI/HI/VH/AH. Active on unit, keeping to self. continue current tx plan. Medication Compliance: No Side effects from medications: No Review of Systems Constitutional: Reports as per HPI Eyes: Reports as per HPI Reports as per HPI Cardiovascular: Reports as per HPI Respiratory: Reports as per HPI Gastrointestinal: Reports as per HPI Genitourinary: Reports as per HPI Musculoskeletal: Reports as per HPI Skin/Breast: Reports as per HPI Reports as per HPI Psychiatric: Reports as per HPI Endocrine: Reports as per HPI Hematologic/Lymphatic: Reports as per HPI Allergic/Immunologic: Reports as per HPI Mental Status Exam Mental Status Exam Narrative: Pt is alert and oriented; behavior is cooperative and calm; dressed in casual attire; mood is described as good ; eye contact appropriate; Speech is normal rate, volume and not pressured; thought process is organized; focused on discharge. denies SI/HI/AH/VH Diagnostics Vital Signs (24Hr): Vital Signs - 24 hr 04/10/24 20:00 04/11/24 07:25 Temperature 97.7 F 97.7 F Pulse Rate 69 68 Respiratory Rate 16 16 Blood Pressure 139/87 127/82 Pulse Oximetry 99 93 Oxygen Delivery Method Room Air Room Air BMI result Body Mass Index 30.7 Labs 04/08/24 07:54 Medications Medications Current Medications Acetaminophen (Acetaminophen 325 Mg Tablet) 650 mg PO Q6H PRN PRN Reason: Headache/Pain Mild Scale (1-3) Last Admin: 04/10/24 17:22 Dose: 650 mg Al Hydroxide/Mg Hydroxide (Magnesium Hydrox/Alum Hydrox 30 Ml Oral.Susp) 30 ml PO Q6H PRN PRN Reason: Heartburn/Nausea Hydroxyzine HCl (Hydroxyzine Hcl 25 Mg Tablet) 25 mg PO Q6H PRN PRN Reason: Anxiety Lurasidone HCl (Lurasidone Hcl 40 Mg Tablet) 40 mg PO DAILY [facility] Last Admin: 04/11/24 08:27 Dose: Not Given Magnesium Hydroxide (Milk Of Magnesia 30 Ml Oral.Susp) 30 ml PO DAILY PRN PRN Reason: Constipation Nicotine Polacrilex (Nicotine Polacrilex 2 Mg Gum) 4 mg BUCCAL Q2H PRN PRN Reason: Nicotine Cravings Olanzapine (Olanzapine 5 Mg Tablet) 5 mg PO TID PRN PRN Reason: agitation Trazodone HCl (Trazodone Hcl 50 Mg Tablet) 50 mg PO BEDTIME MRX1 PRN PRN Reason: Insomnia Allergies Allergies Allergy/AdvReac Type Severity Reaction Status Date / Time No Known Allergies Allergy Verified 04/08/24 00:07 Assessment & Plan Assessment & Plan (1) Schizophrenia: Status: Acute Code(s): F20.9 - Schizophrenia, unspecified Plan Patient is a 24-year-old male with history of schizophrenia who presented to ER on a section 12 by [employer] police after making delusional and persecutory statements. Plan: CV 15 minute safety checks Obtain collateral Start: Latuda 40mg PO daily [facility] Discharge planning 04/09: 3 day notice up on 04/13/24. Refused latuda; pt reports he is not interested in taking it right not but I'll let you know if I change my mind . Pt did not make any paranoid statements; he did mention that this is the first time in awhile that no one looks familiar . Pt reports sleeping well. denies SI/HI/VH/AH. continue current tx plan. 04/10: Took Latuda this morning. Pt reports feeling fine today; pt stated, I feel like the police blew what I said out of proportion. They made it sound like I'm not mentally sound . per nursing slept 8 hours. denies SI/HI/VH/AH. 3: 3 day notice up on 04/13/24. Refused latuda; states he would like to speak to his outpatient provider before continuing medication. Pt reports feeling fine today; reports sleeping well. denies SI/HI/VH/AH. Active on unit, keeping to self. continue current tx plan. Patient educated on: diagnosis and medication risk/benefits Reason for continued inpatient stay Substantial Risk for: med/psych decompensation Time Spent With Patient Time: Total time managing care of this patient today _20___ minutes.
[2024-04-11] MEDS: Acetaminophen 325 MG TABLET 650 MG PO (12:55)
[2024-04-11 20:00] VITALS: BP 129/78; PULSE 80; RESP 16; TEMP 36.8; O2SAT 97
[2024-04-12 08:00] VITALS: BP 125/87; PULSE 81; TEMP 37; O2SAT 97
[2024-04-12] MEDS: Acetaminophen 325 MG TABLET 650 MG PO (08:44)
--- NOTE | 2024-04-12 10:43 | P.PNPSI_ITS ---
Subjective Subjective Date of Service: 04/12/24 Reason For Visit: Schizophrenia Subjective Notes: 3 Day Interim History: 3 day notice up on 04/13/24. Refused latuda this morning;continues to state he would like to speak to his outpatient provider first. Pt reports feeling good and looking forward to returning home. denies SI/HI/VH/AH. Pt plans on following up with his outpatient providers. Medication Compliance: No Side effects from medications: No Attending Groups: Intermittent Mental Status Exam Mental Status Exam Narrative: Pt is alert and oriented; behavior is cooperative and calm; dressed in casual attire; mood is described as good ; eye contact appropriate; Speech is normal rate, volume and not pressured; thought process is organized; no paranoia noted. focused on discharge. denies SI/HI/AH/VH Diagnostics Vital Signs (24Hr): Vital Signs - 24 hr 04/11/24 20:00 04/12/24 08:00 Temperature 98.2 F 98.6 F Pulse Rate 80 81 Respiratory Rate 16 Blood Pressure 129/78 125/87 Pulse Oximetry 97 97 Oxygen Delivery Method Room Air Room Air BMI result Body Mass Index 30.7 Labs 04/08/24 07:54 Medications Medications Current Medications Acetaminophen (Acetaminophen 325 Mg Tablet) 650 mg PO Q6H PRN PRN Reason: Headache/Pain Mild Scale (1-3) Last Admin: 04/12/24 08:44 Dose: 650 mg Al Hydroxide/Mg Hydroxide (Magnesium Hydrox/Alum Hydrox 30 Ml Oral.Susp) 30 ml PO Q6H PRN PRN Reason: Heartburn/Nausea Hydroxyzine HCl (Hydroxyzine Hcl 25 Mg Tablet) 25 mg PO Q6H PRN PRN Reason: Anxiety Lurasidone HCl (Lurasidone Hcl 40 Mg Tablet) 40 mg PO DAILY [facility] Last Admin: 04/12/24 08:39 Dose: Not Given Magnesium Hydroxide (Milk Of Magnesia 30 Ml Oral.Susp) 30 ml PO DAILY PRN PRN Reason: Constipation Nicotine Polacrilex (Nicotine Polacrilex 2 Mg Gum) 4 mg BUCCAL Q2H PRN PRN Reason: Nicotine Cravings Olanzapine (Olanzapine 5 Mg Tablet) 5 mg PO TID PRN PRN Reason: agitation Trazodone HCl (Trazodone Hcl 50 Mg Tablet) 50 mg PO BEDTIME MRX1 PRN PRN Reason: Insomnia Allergies Allergies Allergy/AdvReac Type Severity Reaction Status Date / Time No Known Allergies Allergy Verified 04/08/24 00:07 Assessment & Plan Assessment & Plan (1) Schizophrenia: Status: Acute Code(s): F20.9 - Schizophrenia, unspecified Plan Patient is a 24-year-old male with history of schizophrenia who presented to ER on a section 12 by [employer] police after making delusional and persecutory statements. Plan: CV 15 minute safety checks Obtain collateral Start: Latuda 40mg PO daily [facility] Discharge planning 04/09: 3 day notice up on 04/13/24. Refused latuda; pt reports he is not interested in taking it right not but I'll let you know if I change my mind . Pt did not make any paranoid statements; he did mention that this is the first time in awhile that no one looks familiar . Pt reports sleeping well. denies SI/HI/VH/AH. continue current tx plan. 04/10: Took Latuda this morning. Pt reports feeling fine today; pt stated, I feel like the police blew what I said out of proportion. They made it sound like I'm not mentally sound . per nursing slept 8 hours. denies SI/HI/VH/AH. 3: 3 day notice up on 04/13/24. Refused latuda; states he would like to speak to his outpatient provider before continuing medication. Pt reports feeling fine today; reports sleeping well. denies SI/HI/VH/AH. Active on unit, keeping to self. continue current tx plan. 4: 3 day notice up on 04/13/24. Refused latuda this morning;continues to state he would like to speak to his outpatient provider first. Pt reports feeling good and looking forward to returning home. denies SI/HI/VH/AH. Pt plans on following up with his outpatient providers. Patient educated on: diagnosis and medication risk/benefits Reason for continued inpatient stay Substantial Risk for: stable for discharge Time Spent With Patient Time: Total time managing care of this patient today _20___ minutes.
[2024-04-12] MEDS: Throat Lozenge, Medicated LOZENGE 1 LOZENGE MUCOUS MEM (14:29)
[2024-04-12 15:37] LABS: Influenza A PCR NEGATIVE (Negative); Influenza B PCR NEGATIVE (Negative); Resp Syncy Virus RNA Qual PCR NEGATIVE (Negative); SARS COV2 PCR INHOUSE NEGATIVE (Negative)
--- NOTE | 2024-04-12 17:00 | PM.PSYDC ---
DS: Providers Provider Date of Service: 04/14/24 Date of admission: 04/07/24 21:20 Date of discharge: 04/14/24 Primary care physician: Unknown Physician Admitting clinician: Samara West Attending physician on admission: Alex Camargo Consults: 04/08/24 00:07 Consult to Hospitalist Routine Comment: Consulting Provider: [facility] Hospitalists Reason For Exam: admission physical Attending physician on discharge: Alex Camargo Discharging clinician: Samara West DS: Diagnosis Discharge Diagnosis (1) Schizophrenia: Status: Acute Mental Status Exam Mental Status Exam Narrative: Pt is alert and oriented; behavior is cooperative and calm; dressed in casual attire; mood is described as good ; eye contact appropriate; Speech is normal rate, volume and not pressured; thought process is organized; no paranoia noted. focused on discharge. denies SI/HI/AH/VH Data Data Completed and Pending Completed studies during hospitalization [Text1]: 04/08/24 04/09/24 04/12/24 07:54 07:11 13:54 Sodium 142 Potassium 4.2 Chloride 106 Carbon Dioxide 28 Anion Gap 12 BUN 11 Creatinine 0.97 Estim Creat Clear Calc 141.4 Estimated GFR > 60 Random Glucose 93 Estimat Average Glucose 85 Hemoglobin A1c % 4.6 Calcium 10.1 Total Bilirubin 0.7 AST 23 ALT 54 H Alkaline Phosphatase 64 Total Protein 8.2 H Albumin 4.5 Triglycerides 143 Cholesterol 159 LDL Cholesterol, Calc 90 HDL Cholesterol 41 TSH 1.52 Influenza Type A (PCR) NEGATIVE Influenza Type B (PCR) NEGATIVE RSV RNA Qual (PCR) NEGATIVE SARS-CoV-2 RNA (RT-PCR) NEGATIVE DS: Summary Hospital Course Hospital Course: Patient is a 24-year-old male with history of schizophrenia who presented to ER on a section 12 by [employer] police after making delusional and persecutory statements. Per crisis report, patient was brought into ED by police due to delusions of reference and persecutory delusions related to being gang stalked , stating that his life is at risk. Patient reports seeing imposters of family members and friends. He reports approaching strangers on the street accusing them of stocking/causing harm to him. Patient presents guarded and paranoid while speaking to ED staff. denies SI/HI/AH/VH. Patient reports having psychiatric providers through [facility] although denies taking any medications at this time. 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 Patient reports history of taking Zyprexa, however stopped due to weight gain. Utox negative. No history of SA/SIB. Patient reports adequate sleep and appetite. During admission assessment, patient presents alert and oriented x3. Calm and cooperative. Patient reports feeling anxious ; patient stated, I went to the police to file some complaints to get an investigation started. I have been observing things for the last 3-4 years. I feel like my information is being leaked. I keep seeing people that resemble me and people I know. I'm not sure why someone would try to stalk me. I wanted to make sure it was not a hate crime . Patient reports that he would never go up to any of these look a likes . Patient stated, I just take note of it . denies SI/HI/VH/AH. He reports discussing starting on Latuda with his outpatient psychiatrist however, he believes that he does not need to be on any medications at this time. Patient stated, I know people think I'm being paranoid but I have been noticing this since 2020 . Discussed starting on Latuda; risks/benefits reviewed. Plan: CV 15 minute safety checks Obtain collateral Start: Latuda 40mg PO daily [facility] Discharge planning 3 day notice up on 04/13/24. Refused latuda; pt reports he is not interested in taking it right not but I'll let you know if I change my mind . Pt did not make any paranoid statements; he did mention that this is the first time in awhile that no one looks familiar . Pt reports sleeping well. denies SI/HI/VH/AH. continue current tx plan. Took Latuda this morning. Pt reports feeling fine today; pt stated, I feel like the police blew what I said out of proportion. They made it sound like I'm not mentally sound . per nursing slept 8 hours. denies SI/HI/VH/AH. 3 day notice up on 04/13/24. Refused latuda; states he would like to speak to his outpatient provider before continuing medication. Pt reports feeling fine today; reports sleeping well. denies SI/HI/VH/AH. Active on unit, keeping to self. continue current tx plan. 3 day notice up on 04/13/24. Refused latuda this morning;continues to state he would like to speak to his outpatient provider first. Pt reports feeling good and looking forward to returning home. denies SI/HI/VH/AH. Pt plans on following up with his outpatient providers. denies SI/HI/VH/AH. Status at Discharge Cognitive/behavioral status at discharge: Patient has insight and demonstrates good judgment in terms of wanting to pursue treatment. Patient has a safety plan that includes presenting to the closest ER or calling 911 if feeling unsafe. Functional status at discharge: independent ambulation Overall status at discharge: patient is back to baseline Time Spent with Patient Time attestation: Total time managing care of this patient today _20___ minutes. Time spent: Less than 30 minutes Discharge Plan Discharge Anticipated Discharge Date/Time: 04/13/24 11:30 Patient Disposition: Home, Self-Care Discharge Diagnosis: Schizophrenia Referrals: [facility] [Other] - 04/18/24 4:30 pm (04-11-24 Your primary care provider was notified of your discharge and will be contacting either you or us with the date and time of your follow up appt. Dr. Gilda Terry is no longer with the practice. They will notify you of who your new provider will be. update Your follow up appt has been scheduled with Dr. Almendarez Thursday04-18-24 @4:30pm fax [phone].) [facility] [Other] - 1 Week (Set up an intake when you obtain insurance in [place]. ) [facility] [Other] - 1 Week (Schedule an intake as well as if you need insurance you can call [place] Medicaid at [phone] ) [facility] (therapist) [Other] - 04/15/24 3:15 pm (Telehealth appointment) Discharge Medications: Discontinued clonidine HCl 0.1 mg Tablet 0.1 mg PO TID PRN (Reason: Anxiety) olanzapine 5 mg Tablet 5 mg PO BEDTIME olanzapine 5 mg Tablet 5 mg PO TID PRN (Reason: Psychosis) ibuprofen 600 mg Tablet 600 mg PO Q6H PRN (Reason: Pain) Discharge Orders: Discharge Order (Routine); Ordered 04/13/24 Ordered By: Samara West Diet: Regular diet Activity on Discharge: As tolerated Stand Alone Forms: Patient Portal Discharge page, Community Support Print Language: Afghan Care Plan Goals: Maintain mood and safe behaviors Take medications as prescribed Practice coping skills Continue with outpatient providers and reach out to them as needed Health Concerns: Mood stability and behaviors Plan of Treatment: Follow up with your PCP, psychiatric provider and other outpatient providers regarding above concerns Assessment: Patient has insight and demonstrates good judgment in terms of wanting to pursue treatment. Patient has a safety plan that includes presenting to the closest ER or calling 911 if feeling unsafe. Discharge Date/Time: 04/13/24 15:00
[2024-04-12 20:00] VITALS: BP 150/77; PULSE 77; TEMP 36.8; O2SAT 100
[2024-04-13 07:58] VITALS: BP 136/93; PULSE 71; RESP 16; TEMP 36.4; O2SAT 99
== END 2024-04-13 15:00 | disposition home or self-care (01) | DRG 885 ==
PROVIDERS: Psychiatry & Neurology Psychiatry; Admitting Provider Psychiatry & Neurology Psychiatry; Responsible Provider Registered Nurse; Visit Provider Psychiatry & Neurology Psychiatry
DX: F20.9 Schizophrenia, unspecified (principal); F17.210 Nicotine dependence, cigarettes, uncomplicated; Z71.6 Tobacco abuse counseling; Z20.822 Contact with and (suspected) exposure to COVID-19
CPT/HCPCS: 0241U; 36415; 80053; 80061; 83036; 84443

== ENCOUNTER → 2024-04-07 21:20 | Outpatient (BNV) | payer SELFPAY | PROVIDERS: Admitting Provider Psychiatry & Neurology Psychiatry; Responsible Provider Registered Nurse; Visit Provider Registered Nurse | DX: F20.0 Paranoid schizophrenia (principal) | CPT/HCPCS: 90792; 99231; 99232; 99238 ==

== ENCOUNTER → 2024-04-07 21:20 | Outpatient (BNV) | payer SELFPAY | PROVIDERS: Admitting Provider Psychiatry & Neurology Psychiatry; Responsible Provider Registered Nurse; Visit Provider Student in an Organized Health Care Education/Training Program | DX: Z02.2 Encounter for examination for admission to residential institution (principal) | CPT/HCPCS: 99429 ==